=== PATIENT | female | born 1965 | race Caucasian/White ===

== ENCOUNTER 2021-01-05 04:16 | Inpatient (IN) | payer MEDICAID ==
[~2021-01-05] VITALS: Ht 154.9 cm; Wt 59.0 kg
[2021-01-05] MEDS ORDERED: DEXAMETHASONE 4MG/ML 1ML VIAL IV ONE (04:30)
[2021-01-05 05:04] LABS: CHLORIDE 102 mEq/L (98-107)
[2021-01-05 05:07] LABS: BASOPHILS % 0.3 % (0.0-2.0); HEMATOCRIT. 40.3 % (36.0-48.0); HEMOGLOBIN. 13.8 g/dL (12.0-16.0); MEAN CORPUSCULAR HEMOGLOBIN 31.1 pg (28.0-32.0); MEAN CORPUSCULAR VOLUME 91.1 fL (81.0-99.0); MEAN PLATELET VOLUME 8.1 fl (7.4-10.4); MONOCYTES % 7.5 % (2.0-8.0); NEUTROPHILS % 83.2 % (40.0-76.0); PLATELET 391 x1000/uL (130-400); RED BLOOD CELL COUNT 4.43 mill/uL (4.2-5.4); RED CELL DISTRIBUTION WIDTH 13.4 % (11.6-14.6)
[2021-01-05 05:13] LABS: CREATINE KINASE 65 IU/L (26-192); D-DIMER 1.16 mg/L FEU (<0.50); INR 1.1; PROTHROMBIN TIME 11.1 sec (9.6-11.0)
[2021-01-05] MEDS ORDERED: ASPIRIN 325MG EC TABLET PO NR (06:15)
[2021-01-05] MEDS ORDERED: ENOXAPARIN 80MG/0.8ML SYR SUBCUT NR (06:30)
[2021-01-05 06:58] LABS: PARTIAL THROMBOPLASTIN TIME 27.6 sec (23.4-31.0)
[2021-01-05 11:00] VITALS: BP 109/62
[2021-01-05] MEDS ORDERED: POTASSIUM CHLORIDE 20MEQ TABLET SR PO NR (11:45)
[2021-01-05 12:00] VITALS: BP 110/68
[2021-01-05] MEDS ORDERED: ONDANSETRON HCL 4MG/2ML INJ IV PRN (12:00)
[2021-01-05] MEDS: BLOOD SUGAR DIAGNOSTIC STRIP TEST SCH ×2 (12:40→18:04)
[2021-01-05] MEDS: AZITHROMYCIN 500 MG in DEXT 5% WATER 250 ML IV SCH ×2 (14:12→21:12)
[2021-01-05] MEDS: CEFTRIAXONE 1,000 MG in DEXTROSE 5% WATER 50 ML IV SCH (14:12)
[2021-01-05] MEDS: ASPIRIN 81MG TABLET PO SCH (14:13)
[2021-01-05] MEDS: INSULIN LISPRO 100 UNITS/ML SUBCUT SCH ×3 (14:16→22:14)
[2021-01-05 16:00] VITALS: BP 95/61
[2021-01-05 20:00] VITALS: BP 93/51
[2021-01-05] MEDS: ATORVASTATIN CALCIUM 10MG TABLET PO SCH (21:06)
[2021-01-05] MEDS: ENOXAPARIN 80MG/0.8ML SYR SUBCUT SCH (21:07)
[2021-01-06] VITALS: BP 98/58
[2021-01-06 04:00] VITALS: BP 101/62
[2021-01-06] MEDS: ACETAMINOPHEN 325MG TABLET PO PRN ×2 (06:03→23:45)
[2021-01-06 06:53] LABS: BASOPHILS % 0.3 % (0.0-2.0); HEMATOCRIT. 39.1 % (36.0-48.0); HEMOGLOBIN. 13.3 g/dL (12.0-16.0); LYMPHOCYTES % 8.5 % (20.0-50.0); MEAN CORPUSCULAR HEMOGLOBIN 31.3 pg (28.0-32.0); MEAN PLATELET VOLUME 8.3 fl (7.4-10.4); MONOCYTES % 5.5 % (2.0-8.0); NEUTROPHILS % 85.7 % (40.0-76.0); PLATELET 450 x1000/uL (130-400); RED BLOOD CELL COUNT 4.25 mill/uL (4.2-5.4); RED CELL DISTRIBUTION WIDTH 13.5 % (11.6-14.6)
[2021-01-06] MEDS: BLOOD SUGAR DIAGNOSTIC STRIP TEST SCH ×4 (07:40→21:06)
[2021-01-06 07:57] LABS: CHLORIDE 107 mEq/L (98-107)
[2021-01-06 08:00] VITALS: BP 121/60
[2021-01-06] MEDS ORDERED: CEFTRIAXONE 1 G PREMIX 50 ML IV SCH (09:00)
[2021-01-06] MEDS: INSULIN LISPRO 100 UNITS/ML SUBCUT SCH ×6 (09:10→21:28)
[2021-01-06] MEDS: DEXAMETHASONE 10 MG/ML VIAL IV SCH ×2 (09:12→10:34)
[2021-01-06] MEDS: ENOXAPARIN 80MG/0.8ML SYR SUBCUT SCH ×2 (09:12→21:34)
[2021-01-06] MEDS: ASPIRIN 81MG TABLET PO SCH ×2 (09:12→10:34)
[2021-01-06 12:00] VITALS: BP 116/56
[2021-01-06] MEDS: CEFTRIAXONE 1,000 MG in DEXTROSE 5% WATER 50 ML IV SCH (15:08)
[2021-01-06] MEDS: BENZONATATE 100MG CAPSULE PO SCH ×2 (15:08→21:31)
[2021-01-06 16:00] VITALS: BP 124/55
[2021-01-06 20:00] VITALS: BP 113/65
[2021-01-06] MEDS: ATORVASTATIN CALCIUM 10MG TABLET PO SCH (21:31)
[2021-01-06] MEDS: TRAZODONE HCL 50MG TABLET PO PRN (23:43)
[2021-01-07 00:02] VITALS: BP 110/66
[2021-01-07 04:32] VITALS: BP 111/69
[2021-01-07] MEDS: ACETAMINOPHEN 325MG TABLET PO PRN ×3 (06:17→22:04)
[2021-01-07] MEDS: BENZONATATE 100MG CAPSULE PO SCH ×3 (06:17→21:47)
[2021-01-07 06:30] LABS: HEMATOCRIT. 40.1 % (36.0-48.0); HEMOGLOBIN. 13.6 g/dL (12.0-16.0); MEAN CORPUSCULAR HEMOGLOBIN 31.3 pg (28.0-32.0); MEAN CORPUSCULAR VOLUME 92.2 fL (81.0-99.0); PLATELET 505 x1000/uL (130-400); RED BLOOD CELL COUNT 4.35 mill/uL (4.2-5.4); RED CELL DISTRIBUTION WIDTH 13.8 % (11.6-14.6)
[2021-01-07] MEDS: BLOOD SUGAR DIAGNOSTIC STRIP TEST SCH ×4 (06:37→21:45)
[2021-01-07 06:49] LABS: CHLORIDE 108 mEq/L (98-107)
[2021-01-07 08:00] VITALS: BP 99/65
[2021-01-07] MEDS: ENOXAPARIN 80MG/0.8ML SYR SUBCUT SCH ×2 (08:38→21:47)
[2021-01-07] MEDS: INSULIN LISPRO 100 UNITS/ML SUBCUT SCH ×4 (08:41→21:00)
[2021-01-07 12:00] VITALS: BP_SYST 107
[2021-01-07] MEDS: AZITHROMYCIN 500 MG in DEXT 5% WATER 250 ML IV SCH (12:41)
[2021-01-07 16:00] VITALS: BP 104/67
[2021-01-07] MEDS: CEFTRIAXONE 1,000 MG in DEXTROSE 5% WATER 50 ML IV SCH (17:48)
[2021-01-07 20:00] VITALS: BP 83/55
[2021-01-07] MEDS: ATORVASTATIN CALCIUM 10MG TABLET PO SCH (21:46)
[2021-01-07] MEDS: TRAZODONE HCL 50MG TABLET PO PRN (21:46)
[2021-01-08] VITALS: BP_SYST 89; BP_SYST 99; BP_DIAS 55
[2021-01-08 01:11] LABS: PLATELET ESTIMATE INCREASED
[2021-01-08 04:00] VITALS: BP 95/58
[2021-01-08] MEDS: BENZONATATE 100MG CAPSULE PO SCH ×3 (06:24→22:28)
[2021-01-08] MEDS: ACETAMINOPHEN 325MG TABLET PO PRN (06:42)
[2021-01-08] MEDS: INSULIN LISPRO 100 UNITS/ML SUBCUT SCH ×4 (07:45→21:00)
[2021-01-08] MEDS: BLOOD SUGAR DIAGNOSTIC STRIP TEST SCH ×4 (07:45→21:00)
[2021-01-08 08:29] LABS: CHLORIDE 102 mEq/L (98-107)
[2021-01-08 08:42] LABS: HEMATOCRIT. 40.3 % (36.0-48.0); HEMOGLOBIN. 13.3 g/dL (12.0-16.0); MEAN CORPUSCULAR HEMOGLOBIN 30.3 pg (28.0-32.0); MEAN CORPUSCULAR VOLUME 92.1 fL (81.0-99.0); MEAN PLATELET VOLUME 8.1 fl (7.4-10.4); PLATELET 497 x1000/uL (130-400); RED BLOOD CELL COUNT 4.37 mill/uL (4.2-5.4); RED CELL DISTRIBUTION WIDTH 13.6 % (11.6-14.6)
[2021-01-08] MEDS: DEXAMETHASONE 10 MG/ML VIAL IV SCH (09:44)
[2021-01-08] MEDS: ASPIRIN 81MG TABLET PO SCH (09:44)
[2021-01-08] MEDS: ENOXAPARIN 80MG/0.8ML SYR SUBCUT SCH ×2 (09:47→22:38)
[2021-01-08] MEDS: MIDODRINE HCL 5MG TABLET PO SCH ×3 (10:24→17:00)
[2021-01-08 12:00] VITALS: BP 112/67
[2021-01-08] MEDS: SODIUM CHLORIDE 0.9% 1,000 ML IV SCH (12:07)
[2021-01-08] MEDS: NYSTATIN 100,000 UNITS/ML 5ML UDC SSW SCH ×3 (12:08→17:00)
[2021-01-08] MEDS: LORAZEPAM 2MG/ML CPJ IV PRN (12:09)
[2021-01-08] MEDS ORDERED: IVERMECTIN 3 MG TABLET PO NR (14:00)
[2021-01-08 16:25] VITALS: BP 99/53
[2021-01-08 19:39] LABS: BG CARBOXYHEMOGLOBIN 0.3 % (0.5-1.5); BG DEOXYHEMOGLOBIN 3.7 % (0.0-5.0); BG FRACTION INSPIRED OXYGEN 21; BG HCO3 ACT 22.5 mmol/L (22.0-26.0); BG METHEMOGLOBIN 0.3 % (0.0-1.5); BG OXYGEN SATURATION 96.3 % (92.0-98.5); BG OXYHEMOGLOBIN 95.7 % (94.0-97.0); BG PH 7.439 (7.350-7.450); BG PO2 87.8 mmHg (75.0-100.0); BG SAMPLE SITE RIGHT RADIAL; BG TOTAL HEMOGLOBIN 13.2 g/dL (12.0-18.0); BG VENT MODE ROOM AIR
[2021-01-08 20:00] VITALS: BP 100/55
[2021-01-08] MEDS: ATORVASTATIN CALCIUM 10MG TABLET PO SCH (22:25)
[2021-01-08 23:51] LABS: PLATELET ESTIMATE INCREASED
[2021-01-09] VITALS: BP 125/62
[2021-01-09] MEDS: SODIUM CHLORIDE 0.9% 1,000 ML IV SCH (03:55)
[2021-01-09 04:00] VITALS: BP 92/64
[2021-01-09] MEDS: BENZONATATE 100MG CAPSULE PO SCH ×3 (06:41→21:42)
[2021-01-09 07:07] LABS: CHLORIDE 104 mEq/L (98-107)
[2021-01-09 07:20] LABS: HEMATOCRIT. 35.7 % (36.0-48.0); HEMOGLOBIN. 11.9 g/dL (12.0-16.0); MEAN CORPUSCULAR HEMOGLOBIN 30.6 pg (28.0-32.0); MEAN CORPUSCULAR VOLUME 92.1 fL (81.0-99.0); MEAN PLATELET VOLUME 8.1 fl (7.4-10.4); PLATELET 449 x1000/uL (130-400); RED BLOOD CELL COUNT 3.88 mill/uL (4.2-5.4); RED CELL DISTRIBUTION WIDTH 13.6 % (11.6-14.6)
[2021-01-09] MEDS: BLOOD SUGAR DIAGNOSTIC STRIP TEST SCH ×4 (07:40→21:11)
[2021-01-09 08:00] VITALS: BP 93/60
[2021-01-09] MEDS: INSULIN LISPRO 100 UNITS/ML SUBCUT SCH ×4 (08:10→21:53)
[2021-01-09] MEDS: ENOXAPARIN 80MG/0.8ML SYR SUBCUT SCH ×2 (08:39→22:03)
[2021-01-09] MEDS: ASPIRIN 81MG TABLET PO SCH (08:41)
[2021-01-09] MEDS: LORAZEPAM 2MG/ML CPJ IV PRN ×2 (08:41→22:55)
[2021-01-09] MEDS: NYSTATIN 100,000 UNITS/ML 5ML UDC SSW SCH ×3 (08:41→17:00)
[2021-01-09] MEDS: DEXAMETHASONE 10 MG/ML VIAL IV SCH (08:42)
[2021-01-09] MEDS: MIDODRINE HCL 5MG TABLET PO SCH ×3 (09:05→17:00)
[2021-01-09] MEDS: GUAIFENESIN-DM 200MG-20MG/10ML UDC PO PRN (09:25)
[2021-01-09 12:00] VITALS: BP 98/58
[2021-01-09] MEDS ORDERED: LORAZEPAM 2MG/ML CPJ IV NR (12:30)
[2021-01-09] MEDS: DEXT 5%/0.45% NACL 1000ML 1,000 ML IV SCH ×2 (13:00→21:41)
[2021-01-09 13:20] LABS: PLATELET ESTIMATE SLIGHTLY INCREASED
[2021-01-09 16:00] VITALS: BP 101/68
[2021-01-09 20:00] VITALS: BP 100/66
[2021-01-09] MEDS: ATORVASTATIN CALCIUM 10MG TABLET PO SCH (21:41)
[2021-01-10] VITALS: BP 103/70
[2021-01-10 04:00] VITALS: BP 101/70
[2021-01-10] MEDS: BENZONATATE 100MG CAPSULE PO SCH ×3 (06:17→21:46)
[2021-01-10 06:39] LABS: HEMATOCRIT. 36.2 % (36.0-48.0); MEAN CORPUSCULAR HEMOGLOBIN 30.7 pg (28.0-32.0); MEAN PLATELET VOLUME 8.4 fl (7.4-10.4); PLATELET 476 x1000/uL (130-400); RED CELL DISTRIBUTION WIDTH 13.6 % (11.6-14.6)
[2021-01-10 07:31] LABS: CHLORIDE 104 mEq/L (98-107)
[2021-01-10 08:00] VITALS: BP 102/69
[2021-01-10] MEDS: INSULIN LISPRO 100 UNITS/ML SUBCUT SCH ×4 (08:10→22:37)
[2021-01-10] MEDS: BLOOD SUGAR DIAGNOSTIC STRIP TEST SCH ×4 (08:27→21:00)
[2021-01-10] MEDS: ENOXAPARIN 80MG/0.8ML SYR SUBCUT SCH ×2 (08:50→21:46)
[2021-01-10] MEDS: NYSTATIN 100,000 UNITS/ML 5ML UDC SSW SCH ×3 (08:50→16:38)
[2021-01-10] MEDS: DEXAMETHASONE 10 MG/ML VIAL IV SCH (08:51)
[2021-01-10] MEDS: MIDODRINE HCL 5MG TABLET PO SCH ×3 (08:51→16:38)
[2021-01-10] MEDS: ASPIRIN 81MG TABLET PO SCH ×2 (08:56→09:05)
[2021-01-10] MEDS: DEXT 5%/0.45% NACL 1000ML 1,000 ML IV SCH (08:56)
[2021-01-10] MEDS ORDERED: IVERMECTIN 3 MG TABLET PO NR (09:00)
[2021-01-10] MEDS: LORAZEPAM 2MG/ML CPJ IV PRN (09:04)
[2021-01-10 12:00] VITALS: BP 92/65
[2021-01-10 13:57] LABS: PLATELET ESTIMATE SLIGHTLY INCREASED
[2021-01-10 16:00] VITALS: BP 103/71
[2021-01-10 20:00] VITALS: BP 101/71
[2021-01-10] MEDS: ATORVASTATIN CALCIUM 10MG TABLET PO SCH (21:45)
[2021-01-11] VITALS: BP 103/81
[2021-01-11 04:00] VITALS: BP 136/71
[2021-01-11] MEDS: BENZONATATE 100MG CAPSULE PO SCH ×3 (06:29→22:28)
[2021-01-11 07:33] LABS: HEMATOCRIT. 38.2 % (36.0-48.0); HEMOGLOBIN. 12.6 g/dL (12.0-16.0); MEAN CORPUSCULAR HEMOGLOBIN 30.6 pg (28.0-32.0); MEAN CORPUSCULAR VOLUME 92.8 fL (81.0-99.0); MEAN PLATELET VOLUME 8.8 fl (7.4-10.4); PLATELET 456 x1000/uL (130-400); RED BLOOD CELL COUNT 4.11 mill/uL (4.2-5.4); RED CELL DISTRIBUTION WIDTH 13.4 % (11.6-14.6)
[2021-01-11] MEDS: BLOOD SUGAR DIAGNOSTIC STRIP TEST SCH ×4 (07:40→21:20)
[2021-01-11] MEDS: INSULIN LISPRO 100 UNITS/ML SUBCUT SCH ×4 (08:10→22:31)
[2021-01-11 08:16] LABS: CHLORIDE 104 mEq/L (98-107)
[2021-01-11] MEDS: ENOXAPARIN 80MG/0.8ML SYR SUBCUT SCH ×2 (09:24→22:45)
[2021-01-11] MEDS: DEXAMETHASONE 10 MG/ML VIAL IV SCH (09:25)
[2021-01-11] MEDS: MIDODRINE HCL 5MG TABLET PO SCH ×3 (09:25→17:18)
[2021-01-11] MEDS: NYSTATIN 100,000 UNITS/ML 5ML UDC SSW SCH ×3 (09:25→17:18)
[2021-01-11] MEDS: ASPIRIN 81MG TABLET PO SCH (09:25)
[2021-01-11] MEDS: LORAZEPAM 2MG/ML CPJ IV PRN (09:45)
[2021-01-11 12:00] VITALS: BP 91/58
[2021-01-11] MEDS ORDERED: FUROSEMIDE 40MG/4ML VIAL IVP NR (12:00)
[2021-01-11] MEDS: ACETAMINOPHEN 325MG TABLET PO PRN (14:02)
[2021-01-11 15:15] LABS: PLATELET ESTIMATE NORMAL
[2021-01-11 15:24] LABS: BG BASE EXCESS -1.6 mmol/L (-2.0-2.0); BG CARBOXYHEMOGLOBIN 0.8 % (0.5-1.5); BG FRACTION INSPIRED OXYGEN 100; BG HCO3 ACT 21.7 mmol/L (22.0-26.0); BG METHEMOGLOBIN 0.2 % (0.0-1.5); BG OXYGEN SATURATION 89.9 % (92.0-98.5); BG PCO2 32.4 mmHg (35.0-45.0); BG PH 7.443 (7.350-7.450); BG PO2 56.8 mmHg (75.0-100.0); BG SAMPLE SITE LEFT BRACHIAL; BG TOTAL HEMOGLOBIN 13.7 g/dL (12.0-18.0); BG TOTAL RESPIRATORY RATE 35 b/min; BG VENT MODE MASK - BIPAP
[2021-01-11 20:00] VITALS: BP 114/71
[2021-01-11] MEDS: ATORVASTATIN CALCIUM 10MG TABLET PO SCH (22:28)
[2021-01-12] VITALS: BP 119/68
[2021-01-12 04:00] VITALS: BP 111/72
[2021-01-12] MEDS: BENZONATATE 100MG CAPSULE PO SCH ×3 (06:29→21:18)
[2021-01-12 08:00] VITALS: BP 102/64
[2021-01-12] MEDS: INSULIN LISPRO 100 UNITS/ML SUBCUT SCH ×4 (08:10→21:57)
[2021-01-12] MEDS: BLOOD SUGAR DIAGNOSTIC STRIP TEST SCH ×4 (08:16→21:40)
[2021-01-12] MEDS: ENOXAPARIN 80MG/0.8ML SYR SUBCUT SCH ×2 (08:52→21:18)
[2021-01-12] MEDS: ASPIRIN 81MG TABLET PO SCH (08:52)
[2021-01-12] MEDS: NYSTATIN 100,000 UNITS/ML 5ML UDC SSW SCH ×3 (08:52→17:01)
[2021-01-12] MEDS: DEXAMETHASONE 10 MG/ML VIAL IV SCH (08:52)
[2021-01-12] MEDS: MIDODRINE HCL 5MG TABLET PO SCH ×3 (08:52→17:01)
[2021-01-12] MEDS: ACETAMINOPHEN 325MG TABLET PO PRN (08:52)
[2021-01-12] MEDS: LORAZEPAM 2MG/ML CPJ IV PRN (08:54)
[2021-01-12 20:39] VITALS: BP 108/69
[2021-01-12] MEDS: ATORVASTATIN CALCIUM 10MG TABLET PO SCH (21:17)
[2021-01-13 00:19] VITALS: BP 100/72
[2021-01-13 04:00] VITALS: BP 112/74
[2021-01-13] MEDS: BENZONATATE 100MG CAPSULE PO SCH ×3 (06:04→21:25)
[2021-01-13 06:46] LABS: HEMATOCRIT. 43.5 % (36.0-48.0); HEMOGLOBIN. 14.2 g/dL (12.0-16.0); MEAN CORPUSCULAR HEMOGLOBIN 30.6 pg (28.0-32.0); MEAN CORPUSCULAR VOLUME 93.7 fL (81.0-99.0); MEAN PLATELET VOLUME 8.8 fl (7.4-10.4); PLATELET 546 x1000/uL (130-400); RED BLOOD CELL COUNT 4.64 mill/uL (4.2-5.4); RED CELL DISTRIBUTION WIDTH 13.7 % (11.6-14.6)
[2021-01-13] MEDS: BLOOD SUGAR DIAGNOSTIC STRIP TEST SCH ×4 (07:40→21:42)
[2021-01-13] MEDS: INSULIN LISPRO 100 UNITS/ML SUBCUT SCH ×4 (08:10→21:56)
[2021-01-13 08:25] LABS: CHLORIDE 109 mEq/L (98-107)
[2021-01-13] MEDS: ACETAMINOPHEN 325MG TABLET PO PRN (09:11)
[2021-01-13] MEDS: GUAIFENESIN-DM 200MG-20MG/10ML UDC PO PRN (09:11)
[2021-01-13] MEDS: ASPIRIN 81MG TABLET PO SCH (09:11)
[2021-01-13] MEDS: NYSTATIN 100,000 UNITS/ML 5ML UDC SSW SCH (09:11)
[2021-01-13] MEDS: DEXAMETHASONE 10 MG/ML VIAL IV SCH (09:12)
[2021-01-13] MEDS: MIDODRINE HCL 5MG TABLET PO SCH ×3 (09:14→16:13)
[2021-01-13] MEDS: ENOXAPARIN 80MG/0.8ML SYR SUBCUT SCH ×2 (09:14→21:25)
[2021-01-13 12:00] VITALS: BP 107/61
[2021-01-13 16:00] VITALS: BP 90/54
[2021-01-13 20:17] LABS: PLATELET ESTIMATE INCREASED
[2021-01-13 20:40] VITALS: BP 98/63
[2021-01-13] MEDS: ATORVASTATIN CALCIUM 10MG TABLET PO SCH (21:24)
[2021-01-13] MEDS: LORAZEPAM 2MG/ML CPJ IV PRN (23:08)
[2021-01-14] VITALS: BP 100/49
[2021-01-14 04:00] VITALS: BP 90/61
[2021-01-14] MEDS: BENZONATATE 100MG CAPSULE PO SCH ×3 (06:47→22:20)
[2021-01-14] MEDS: INSULIN LISPRO 100 UNITS/ML SUBCUT SCH ×4 (07:14→22:19)
[2021-01-14 07:25] LABS: BASOPHILS % 0.5 % (0.0-2.0); EOSINOPHILS % 0.3 % (0.0-5.0); HEMATOCRIT. 42.2 % (36.0-48.0); HEMOGLOBIN. 13.7 g/dL (12.0-16.0); LYMPHOCYTES % 7.7 % (20.0-50.0); MEAN CORPUSCULAR HEMOGLOBIN 30.7 pg (28.0-32.0); MEAN CORPUSCULAR VOLUME 94.8 fL (81.0-99.0); MEAN PLATELET VOLUME 9.3 fl (7.4-10.4); NEUTROPHILS % 87.5 % (40.0-76.0); PLATELET 522 x1000/uL (130-400); RED BLOOD CELL COUNT 4.46 mill/uL (4.2-5.4); RED CELL DISTRIBUTION WIDTH 13.8 % (11.6-14.6)
[2021-01-14 07:53] LABS: CHLORIDE 106 mEq/L (98-107)
[2021-01-14 08:00] VITALS: BP 114/73
[2021-01-14] MEDS: ASPIRIN 81MG TABLET PO SCH (08:28)
[2021-01-14] MEDS: DEXAMETHASONE 10 MG/ML VIAL IV SCH (08:28)
[2021-01-14] MEDS: ENOXAPARIN 80MG/0.8ML SYR SUBCUT SCH ×2 (08:29→22:20)
[2021-01-14] MEDS: MIDODRINE HCL 5MG TABLET PO SCH ×3 (08:30→17:53)
[2021-01-14] MEDS: BLOOD SUGAR DIAGNOSTIC STRIP TEST SCH ×3 (11:41→21:00)
[2021-01-14 12:00] VITALS: BP 103/72
[2021-01-14 20:00] VITALS: BP 104/64
[2021-01-14] MEDS: ATORVASTATIN CALCIUM 10MG TABLET PO SCH (22:20)
[2021-01-15] VITALS (7 sets, daily range): BP systolic 84–98; BP diastolic 45–64
[2021-01-15] MEDS: BENZONATATE 100MG CAPSULE PO SCH ×3 (05:23→20:50)
[2021-01-15] MEDS: INSULIN LISPRO 100 UNITS/ML SUBCUT SCH ×4 (07:12→20:50)
[2021-01-15 07:30] LABS: BASOPHILS % 0.4 % (0.0-2.0); EOSINOPHILS % 0.4 % (0.0-5.0); HEMATOCRIT. 36.1 % (36.0-48.0); HEMOGLOBIN. 11.9 g/dL (12.0-16.0); LYMPHOCYTES % 7.3 % (20.0-50.0); MEAN CORPUSCULAR HEMOGLOBIN 30.6 pg (28.0-32.0); MEAN PLATELET VOLUME 8.9 fl (7.4-10.4); MONOCYTES % 4.8 % (2.0-8.0); NEUTROPHILS % 87.1 % (40.0-76.0); PLATELET 432 x1000/uL (130-400); RED BLOOD CELL COUNT 3.88 mill/uL (4.2-5.4); RED CELL DISTRIBUTION WIDTH 13.6 % (11.6-14.6)
[2021-01-15] MEDS: BLOOD SUGAR DIAGNOSTIC STRIP TEST SCH ×4 (07:59→20:51)
[2021-01-15 08:05] LABS: CHLORIDE 102 mEq/L (98-107)
[2021-01-15] MEDS: MIDODRINE HCL 5MG TABLET PO SCH ×3 (08:28→17:24)
[2021-01-15] MEDS: ASPIRIN 81MG TABLET PO SCH (08:28)
[2021-01-15] MEDS: DEXAMETHASONE 10 MG/ML VIAL IV SCH (08:29)
[2021-01-15] MEDS: ENOXAPARIN 80MG/0.8ML SYR SUBCUT SCH ×2 (08:30→20:50)
[2021-01-15] MEDS ORDERED: SODIUM CHLORIDE 0.9% 500 ML IV NR ×2 (10:45→11:00)
[2021-01-15] MEDS: CITALOPRAM HYDROBROMIDE 10MG TABLET PO SCH (10:57)
[2021-01-15] MEDS: LORAZEPAM 0.5MG TABLET PO PRN ×3 (11:17→21:18)
[2021-01-15] MEDS ORDERED: ASPIRIN 325MG EC TABLET PO NR (20:30)
[2021-01-15] MEDS: SODIUM CHLORIDE 0.9% 1,000 ML IV SCH (20:50)
[2021-01-15] MEDS: ATORVASTATIN CALCIUM 10MG TABLET PO SCH (20:50)
[2021-01-15] MEDS: TRAZODONE HCL 50MG TABLET PO PRN (22:57)
[2021-01-16] VITALS (7 sets, daily range): BP systolic 88–105; BP diastolic 48–82
[2021-01-16] MEDS: ACETAMINOPHEN 325MG TABLET PO PRN ×2 (02:00→12:54)
[2021-01-16] MEDS: BENZONATATE 100MG CAPSULE PO SCH ×3 (06:22→21:00)
[2021-01-16] MEDS: INSULIN LISPRO 100 UNITS/ML SUBCUT SCH ×4 (07:18→21:00)
[2021-01-16] MEDS: BLOOD SUGAR DIAGNOSTIC STRIP TEST SCH ×4 (07:18→21:00)
[2021-01-16 07:34] LABS: BASOPHILS % 0.5 % (0.0-2.0); EOSINOPHILS % 0.4 % (0.0-5.0); HEMATOCRIT. 34.2 % (36.0-48.0); HEMOGLOBIN. 11.5 g/dL (12.0-16.0); LYMPHOCYTES % 8.5 % (20.0-50.0); MEAN CORPUSCULAR HEMOGLOBIN 31.3 pg (28.0-32.0); MONOCYTES % 4.7 % (2.0-8.0); NEUTROPHILS % 85.9 % (40.0-76.0); PLATELET 400 x1000/uL (130-400); RED BLOOD CELL COUNT 3.67 mill/uL (4.2-5.4); RED CELL DISTRIBUTION WIDTH 13.4 % (11.6-14.6)
[2021-01-16 07:43] LABS: CHLORIDE 104 mEq/L (98-107)
[2021-01-16] MEDS: DEXAMETHASONE 10 MG/ML VIAL IV SCH (08:34)
[2021-01-16] MEDS: CITALOPRAM HYDROBROMIDE 10MG TABLET PO SCH (08:34)
[2021-01-16] MEDS: ASPIRIN 81MG TABLET PO SCH (08:34)
[2021-01-16] MEDS: ENOXAPARIN 80MG/0.8ML SYR SUBCUT SCH ×2 (08:34→20:59)
[2021-01-16] MEDS: MIDODRINE HCL 5MG TABLET PO SCH ×3 (08:34→16:43)
[2021-01-16] MEDS: SODIUM CHLORIDE 0.9% 1,000 ML IV SCH (09:57)
[2021-01-16] MEDS: ATORVASTATIN CALCIUM 10MG TABLET PO SCH (20:59)
[2021-01-16] MEDS: TRAZODONE HCL 50MG TABLET PO PRN (23:41)
[2021-01-17] VITALS (73 sets, daily range): BP systolic 69–167; BP diastolic 31–104
[2021-01-17] MEDS: SODIUM CHLORIDE 0.9% 1,000 ML IV SCH
[2021-01-17] MEDS: ACETAMINOPHEN 325MG TABLET PO PRN ×2 (00:47→21:14)
[2021-01-17] MEDS: LORAZEPAM 0.5MG TABLET PO PRN (00:52)
[2021-01-17 01:08] LABS: LDL CHOLESTEROL 86 mg/dL (5-100)
[2021-01-17 01:09] LABS: HDL CHOLESTEROL 46 mg/dL (40-59)
[2021-01-17 02:39] LABS: BG BASE EXCESS -0.7 mmol/L (-2.0-2.0); BG CARBOXYHEMOGLOBIN 0.3 % (0.5-1.5); BG DEOXYHEMOGLOBIN 9.2 % (0.0-5.0); BG FRACTION INSPIRED OXYGEN 100; BG HCO3 ACT 25.3 mmol/L (22.0-26.0); BG METHEMOGLOBIN 0.2 % (0.0-1.5); BG OXYGEN SATURATION 90.8 % (92.0-98.5); BG OXYHEMOGLOBIN 90.3 % (94.0-97.0); BG PCO2 46.9 mmHg (35.0-45.0); BG PH 7.349 (7.350-7.450); BG PO2 61.1 mmHg (75.0-100.0); BG SAMPLE SITE LEFT RADIAL; BG TOTAL HEMOGLOBIN 13.3 g/dL (12.0-18.0); BG VENT MODE MASK - BIPAP
[2021-01-17] MEDS ORDERED: LIDOCAINE HCL/EPINEPHRINE 1%-EPI 1:100,000 50 ML VIAL INFIL NR (02:45)
[2021-01-17] MEDS ORDERED: MORPHINE SULFATE 2 MG/ML CPJ (NOT FOR IM USE) IV PRN ×2 (03:00→07:00)
[2021-01-17] MEDS: BLOOD SUGAR DIAGNOSTIC STRIP TEST SCH ×4 (05:47→21:16)
[2021-01-17] MEDS: BENZONATATE 100MG CAPSULE PO SCH ×3 (05:47→21:24)
[2021-01-17] MEDS: INSULIN LISPRO 100 UNITS/ML SUBCUT SCH ×4 (05:48→21:15)
[2021-01-17 05:55] LABS: CHLORIDE 103 mEq/L (98-107)
[2021-01-17 05:59] LABS: HEMATOCRIT. 38.3 % (36.0-48.0); HEMOGLOBIN. 12.3 g/dL (12.0-16.0); MEAN CORPUSCULAR HEMOGLOBIN 29.9 pg (28.0-32.0); MEAN CORPUSCULAR VOLUME 93.4 fL (81.0-99.0); MEAN PLATELET VOLUME 8.7 fl (7.4-10.4); PLATELET 479 x1000/uL (130-400); RED CELL DISTRIBUTION WIDTH 13.9 % (11.6-14.6)
[2021-01-17] MEDS: ASPIRIN 81MG TABLET PO SCH (09:00)
[2021-01-17] MEDS: CITALOPRAM HYDROBROMIDE 10MG TABLET PO SCH (09:00)
[2021-01-17] MEDS: MIDODRINE HCL 5MG TABLET PO SCH ×3 (09:00→17:00)
[2021-01-17] MEDS ORDERED: MIDAZOLAM HCL 100 MG in SODIUM CHLORIDE 0.9% 80 ML IV PRN (09:00)
[2021-01-17] MEDS ORDERED: IPRATROPIUM/ALBUTEROL 0.5-3(2.5)MG/3ML NEB HHN PRN (09:15)
[2021-01-17] MEDS: MIDAZOLAM 100MG/100ML PREMIX IV PRN ×3 (09:17→21:14)
[2021-01-17 09:57] LABS: PLATELET ESTIMATE INCREASED
[2021-01-17] MEDS: PHENYLEPHRINE 100 MG in DEXT 5% WATER 240 ML IV PRN ×2 (10:25→17:34)
[2021-01-17] MEDS: FENTANYL CITRATE/PF 2,500 MCG in SODIUM CHLORIDE 0.9% 200 ML IV PRN ×2 (10:26→17:35)
[2021-01-17 10:53] LABS: BG BASE EXCESS 2.6 mmol/L (-2.0-2.0); BG CARBOXYHEMOGLOBIN 0.4 % (0.5-1.5); BG DEOXYHEMOGLOBIN 12.6 % (0.0-5.0); BG FRACTION INSPIRED OXYGEN 100; BG HCO3 ACT 31.9 mmol/L (22.0-26.0); BG METHEMOGLOBIN 0.3 % (0.0-1.5); BG OXYGEN SATURATION 87.3 % (92.0-98.5); BG OXYHEMOGLOBIN 86.7 % (94.0-97.0); BG PCO2 73.7 mmHg (35.0-45.0); BG PH 7.254 (7.350-7.450); BG SAMPLE SITE RIGHT RADIAL; BG TOTAL HEMOGLOBIN 13.1 g/dL (12.0-18.0); BG VENT MODE VENT - AC
[2021-01-17] MEDS: METHYLPREDNISOLONE SOD SUCC 40 MG/ML VIAL IV SCH ×3 (11:51→21:14)
[2021-01-17] MEDS: ENOXAPARIN 80MG/0.8ML SYR SUBCUT SCH ×2 (11:51→21:13)
[2021-01-17] MEDS: IPRATROPIUM/ALBUTEROL 0.5-3(2.5)MG/3ML NEB HHN SCH ×3 (13:25→23:40)
[2021-01-17] MEDS: PROPOFOL 10MG/ML 100ML 100 ML IV PRN ×3 (13:41→21:16)
[2021-01-17] MEDS: ATORVASTATIN CALCIUM 10MG TABLET PO SCH (21:15)
[2021-01-18] VITALS (81 sets, daily range): BP systolic 71–188; BP diastolic 47–124
[2021-01-18] MEDS: FENTANYL CITRATE/PF 2,500 MCG in SODIUM CHLORIDE 0.9% 200 ML IV PRN ×2 (01:01→17:32)
[2021-01-18] MEDS: MIDAZOLAM 100MG/100ML PREMIX IV PRN (04:51)
[2021-01-18] MEDS: BENZONATATE 100MG CAPSULE PO SCH ×3 (05:11→21:23)
[2021-01-18] MEDS: IPRATROPIUM/ALBUTEROL 0.5-3(2.5)MG/3ML NEB HHN SCH ×5 (05:37→21:25)
[2021-01-18] MEDS ORDERED: DOPAMINE 800MG/500ML PREMIX 500 ML IV ONE (05:45)
[2021-01-18 05:49] LABS: HEMATOCRIT. 37.2 % (36.0-48.0); MEAN CORPUSCULAR HEMOGLOBIN 30.2 pg (28.0-32.0); MEAN CORPUSCULAR VOLUME 93.6 fL (81.0-99.0); MEAN PLATELET VOLUME 8.8 fl (7.4-10.4); PLATELET 440 x1000/uL (130-400); RED BLOOD CELL COUNT 3.98 mill/uL (4.2-5.4); RED CELL DISTRIBUTION WIDTH 14.1 % (11.6-14.6)
[2021-01-18 05:58] LABS: CHLORIDE 107 mEq/L (98-107)
[2021-01-18] MEDS: METHYLPREDNISOLONE SOD SUCC 40 MG/ML VIAL IV SCH ×3 (06:20→21:22)
[2021-01-18] MEDS: INSULIN LISPRO 100 UNITS/ML SUBCUT SCH ×4 (06:21→21:24)
[2021-01-18] MEDS: DOPAMINE 800 MG PREMIX 250 ML IV PRN (06:23)
[2021-01-18] MEDS: BLOOD SUGAR DIAGNOSTIC STRIP TEST SCH ×4 (06:37→21:23)
[2021-01-18] MEDS: ASPIRIN 81MG TABLET PO SCH (09:13)
[2021-01-18] MEDS: CITALOPRAM HYDROBROMIDE 10MG TABLET PO SCH (09:13)
[2021-01-18] MEDS: MIDODRINE HCL 5MG TABLET PO SCH ×3 (09:14→17:51)
[2021-01-18] MEDS: ENOXAPARIN 80MG/0.8ML SYR SUBCUT SCH (09:15)
[2021-01-18 09:32] LABS: BG BASE EXCESS 5.6 mmol/L (-2.0-2.0); BG CARBOXYHEMOGLOBIN 0.6 % (0.5-1.5); BG DEOXYHEMOGLOBIN 4.7 % (0.0-5.0); BG METHEMOGLOBIN 0.2 % (0.0-1.5); BG OXYGEN SATURATION 95.3 % (92.0-98.5); BG OXYHEMOGLOBIN 94.5 % (94.0-97.0); BG PCO2 43.1 mmHg (35.0-45.0); BG PH 7.461 (7.350-7.450); BG PO2 72.3 mmHg (75.0-100.0); BG SAMPLE SITE LEFT RADIAL; BG TOTAL HEMOGLOBIN 14.5 g/dL (12.0-18.0); BG VENT MODE VENT - P/C
[2021-01-18] MEDS ORDERED: NOREPINEPHRINE 32 MG in DEXT 5% WATER 218 ML IV PRN (09:45)
[2021-01-18] MEDS: PHENYLEPHRINE 100 MG in DEXT 5% WATER 240 ML IV PRN (10:34)
[2021-01-18 17:25] LABS: PLATELET ESTIMATE INCREASED
[2021-01-18] MEDS ORDERED: IOHEXOL-300 100 ML BOTTLE ONE (18:01)
[2021-01-18] MEDS: ACETAMINOPHEN 325MG TABLET PO PRN (18:24)
[2021-01-18] MEDS: ENOXAPARIN 60MG/0.6ML SYR SUBCUT SCH (21:23)
[2021-01-18] MEDS: ATORVASTATIN CALCIUM 10MG TABLET PO SCH (21:23)
[2021-01-19] VITALS (95 sets, daily range): BP systolic 80–165; BP diastolic 50–114
[2021-01-19] MEDS: IPRATROPIUM/ALBUTEROL 0.5-3(2.5)MG/3ML NEB HHN SCH ×6 (01:00→20:20)
[2021-01-19] MEDS: FENTANYL CITRATE/PF 2,500 MCG in SODIUM CHLORIDE 0.9% 200 ML IV PRN ×2 (03:50→17:07)
[2021-01-19] MEDS: DOPAMINE 800 MG PREMIX 250 ML IV PRN (03:51)
[2021-01-19] MEDS: METHYLPREDNISOLONE SOD SUCC 40 MG/ML VIAL IV SCH ×3 (05:18→21:24)
[2021-01-19] MEDS: BENZONATATE 100MG CAPSULE PO SCH ×3 (05:18→21:24)
[2021-01-19] MEDS: BLOOD SUGAR DIAGNOSTIC STRIP TEST SCH ×4 (05:18→23:42)
[2021-01-19] MEDS: INSULIN LISPRO 100 UNITS/ML SUBCUT SCH ×4 (05:19→23:42)
[2021-01-19 05:46] LABS: HEMATOCRIT. 40.6 % (36.0-48.0); MEAN CORPUSCULAR HEMOGLOBIN 29.9 pg (28.0-32.0); MEAN CORPUSCULAR VOLUME 93.7 fL (81.0-99.0); MEAN PLATELET VOLUME 8.9 fl (7.4-10.4); PLATELET 466 x1000/uL (130-400); RED BLOOD CELL COUNT 4.34 mill/uL (4.2-5.4)
[2021-01-19 05:48] LABS: CHLORIDE 103 mEq/L (98-107)
[2021-01-19] MEDS: CITALOPRAM HYDROBROMIDE 10MG TABLET PO SCH (08:29)
[2021-01-19] MEDS: ASPIRIN 81MG TABLET PO SCH (08:29)
[2021-01-19] MEDS: MIDODRINE HCL 5MG TABLET PO SCH ×3 (08:29→16:18)
[2021-01-19] MEDS: ENOXAPARIN 60MG/0.6ML SYR SUBCUT SCH ×2 (08:30→21:25)
[2021-01-19 09:15] LABS: PLATELET ESTIMATE INCREASED
[2021-01-19 10:19] LABS: BG BASE EXCESS 4.2 mmol/L (-2.0-2.0); BG CARBOXYHEMOGLOBIN 0.5 % (0.5-1.5); BG DEOXYHEMOGLOBIN 6.5 % (0.0-5.0); BG FRACTION INSPIRED OXYGEN 100; BG HCO3 ACT 29.5 mmol/L (22.0-26.0); BG OXYGEN SATURATION 93.5 % (92.0-98.5); BG PCO2 46.8 mmHg (35.0-45.0); BG PH 7.418 (7.350-7.450); BG PO2 68.9 mmHg (75.0-100.0); BG SAMPLE SITE RIGHT RADIAL; BG TOTAL HEMOGLOBIN 13.5 g/dL (12.0-18.0); BG VENT MODE VENT - P/C
[2021-01-19] MEDS: PHENYLEPHRINE 100 MG in DEXT 5% WATER 240 ML IV PRN (19:46)
[2021-01-19] MEDS: ATORVASTATIN CALCIUM 10MG TABLET PO SCH (21:24)
[2021-01-20] VITALS (97 sets, daily range): BP systolic 105–145; BP diastolic 71–100
[2021-01-20] MEDS: FENTANYL CITRATE/PF 2,500 MCG in SODIUM CHLORIDE 0.9% 200 ML IV PRN ×3 (01:59→17:30)
[2021-01-20] MEDS: IPRATROPIUM/ALBUTEROL 0.5-3(2.5)MG/3ML NEB HHN SCH ×5 (02:28→20:10)
[2021-01-20] MEDS: METHYLPREDNISOLONE SOD SUCC 40 MG/ML VIAL IV SCH ×3 (05:21→21:07)
[2021-01-20] MEDS: INSULIN LISPRO 100 UNITS/ML SUBCUT SCH ×3 (05:21→17:31)
[2021-01-20] MEDS: BENZONATATE 100MG CAPSULE PO SCH (05:21)
[2021-01-20] MEDS: BLOOD SUGAR DIAGNOSTIC STRIP TEST SCH ×3 (05:21→17:23)
[2021-01-20] MEDS: ENOXAPARIN 60MG/0.6ML SYR SUBCUT SCH ×2 (08:44→20:57)
[2021-01-20] MEDS: ACETAMINOPHEN 325MG TABLET PO PRN ×2 (08:45→20:57)
[2021-01-20] MEDS: MIDODRINE HCL 5MG TABLET PO SCH ×2 (08:45→12:15)
[2021-01-20] MEDS: ASPIRIN 81MG TABLET PO SCH (08:45)
[2021-01-20] MEDS: CITALOPRAM HYDROBROMIDE 10MG TABLET PO SCH (08:45)
[2021-01-20 12:31] LABS: HEMATOCRIT. 37.6 % (36.0-48.0); HEMOGLOBIN. 11.8 g/dL (12.0-16.0); MEAN CORPUSCULAR HEMOGLOBIN 30.3 pg (28.0-32.0); MEAN CORPUSCULAR VOLUME 96.2 fL (81.0-99.0); MEAN PLATELET VOLUME 8.6 fl (7.4-10.4); PLATELET 386 x1000/uL (130-400); RED BLOOD CELL COUNT 3.91 mill/uL (4.2-5.4); RED CELL DISTRIBUTION WIDTH 15.1 % (11.6-14.6)
[2021-01-20 12:37] LABS: CHLORIDE 106 mEq/L (98-107)
[2021-01-20] MEDS ORDERED: GUAIFENESIN-DM 200MG-20MG/10ML UDC GT PRN (12:39)
[2021-01-20] MEDS ORDERED: LORAZEPAM 0.5MG TABLET GT PRN (12:41)
[2021-01-20] MEDS ORDERED: TRAZODONE HCL 50MG TABLET GT PRN (12:42)
[2021-01-20] MEDS: MIDODRINE HCL 5MG TABLET GT SCH ×2 (13:00→17:29)
[2021-01-20 13:22] LABS: PLATELET ESTIMATE NORMAL
[2021-01-20] MEDS: ATORVASTATIN CALCIUM 10MG TABLET NG SCH (20:56)
[2021-01-20] MEDS: MIDAZOLAM 100MG/100ML PREMIX IV PRN (20:56)
[2021-01-21] VITALS (99 sets, daily range): BP systolic 92–153; BP diastolic 55–99
[2021-01-21] MEDS: BLOOD SUGAR DIAGNOSTIC STRIP TEST SCH ×5 (00:03→23:37)
[2021-01-21] MEDS: INSULIN LISPRO 100 UNITS/ML SUBCUT SCH ×6 (00:30→23:53)
[2021-01-21] MEDS: FENTANYL CITRATE/PF 2,500 MCG in SODIUM CHLORIDE 0.9% 200 ML IV PRN ×3 (01:51→18:53)
[2021-01-21] MEDS: IPRATROPIUM/ALBUTEROL 0.5-3(2.5)MG/3ML NEB HHN SCH ×6 (04:00→20:33)
[2021-01-21 05:34] LABS: HEMATOCRIT. 34.9 % (36.0-48.0); HEMOGLOBIN. 11.1 g/dL (12.0-16.0); MEAN CORPUSCULAR HEMOGLOBIN 30.6 pg (28.0-32.0); MEAN CORPUSCULAR VOLUME 96.3 fL (81.0-99.0); MEAN PLATELET VOLUME 8.9 fl (7.4-10.4); PLATELET 363 x1000/uL (130-400); RED BLOOD CELL COUNT 3.62 mill/uL (4.2-5.4)
[2021-01-21 05:45] LABS: CHLORIDE 104 mEq/L (98-107)
[2021-01-21] MEDS: METHYLPREDNISOLONE SOD SUCC 40 MG/ML VIAL IV SCH ×3 (06:34→22:06)
[2021-01-21] MEDS: MIDAZOLAM 100MG/100ML PREMIX IV PRN (08:22)
[2021-01-21] MEDS: ENOXAPARIN 60MG/0.6ML SYR SUBCUT SCH ×2 (08:23→22:08)
[2021-01-21] MEDS: CITALOPRAM HYDROBROMIDE 10MG TABLET GT SCH (08:23)
[2021-01-21] MEDS: ASPIRIN 81MG TABLET NG SCH (08:24)
[2021-01-21] MEDS: MIDODRINE HCL 5MG TABLET GT SCH ×3 (08:24→18:23)
[2021-01-21 09:40] LABS: PLATELET ESTIMATE NORMAL
[2021-01-21] MEDS: PHENYLEPHRINE 100 MG in DEXT 5% WATER 240 ML IV PRN (11:59)
[2021-01-21] MEDS: ATORVASTATIN CALCIUM 10MG TABLET NG SCH (22:07)
[2021-01-22] VITALS (98 sets, daily range): BP systolic 86–125; BP diastolic 54–84
[2021-01-22] MEDS: IPRATROPIUM/ALBUTEROL 0.5-3(2.5)MG/3ML NEB HHN SCH ×6 (00:43→20:12)
[2021-01-22] MEDS: MIDAZOLAM 100MG/100ML PREMIX IV PRN ×2 (01:11→14:40)
[2021-01-22] MEDS: FENTANYL CITRATE/PF 2,500 MCG in SODIUM CHLORIDE 0.9% 200 ML IV PRN ×3 (03:16→17:45)
[2021-01-22] MEDS: BLOOD SUGAR DIAGNOSTIC STRIP TEST SCH ×3 (05:33→17:46)
[2021-01-22] MEDS: INSULIN LISPRO 100 UNITS/ML SUBCUT SCH ×3 (05:48→17:58)
[2021-01-22 05:53] LABS: HEMATOCRIT. 31.7 % (36.0-48.0); HEMOGLOBIN. 10.3 g/dL (12.0-16.0); MEAN CORPUSCULAR HEMOGLOBIN 31.2 pg (28.0-32.0); MEAN PLATELET VOLUME 8.8 fl (7.4-10.4); PLATELET 305 x1000/uL (130-400); RED BLOOD CELL COUNT 3.31 mill/uL (4.2-5.4); RED CELL DISTRIBUTION WIDTH 14.4 % (11.6-14.6)
[2021-01-22 06:06] LABS: CHLORIDE 104 mEq/L (98-107)
[2021-01-22] MEDS: METHYLPREDNISOLONE SOD SUCC 40 MG/ML VIAL IV SCH ×3 (06:30→20:26)
[2021-01-22] MEDS: ASPIRIN 81MG TABLET NG SCH (08:12)
[2021-01-22] MEDS: MIDODRINE HCL 5MG TABLET GT SCH ×3 (08:12→17:39)
[2021-01-22] MEDS: CITALOPRAM HYDROBROMIDE 10MG TABLET GT SCH (08:12)
[2021-01-22] MEDS: ENOXAPARIN 60MG/0.6ML SYR SUBCUT SCH ×2 (08:14→20:26)
[2021-01-22 10:51] LABS: BG BASE EXCESS 6.8 mmol/L (-2.0-2.0); BG DEOXYHEMOGLOBIN 10.1 % (0.0-5.0); BG FRACTION INSPIRED OXYGEN 100; BG HCO3 ACT 35.3 mmol/L (22.0-26.0); BG METHEMOGLOBIN 0.3 % (0.0-1.5); BG OXYGEN SATURATION 89.8 % (92.0-98.5); BG OXYHEMOGLOBIN 88.6 % (94.0-97.0); BG PCO2 65.2 mmHg (35.0-45.0); BG PH 7.352 (7.350-7.450); BG PO2 56.5 mmHg (75.0-100.0); BG SAMPLE SITE LEFT RADIAL; BG TOTAL HEMOGLOBIN 17.3 g/dL (12.0-18.0); BG VENT MODE VENT - P/C
[2021-01-22] MEDS: FAMOTIDINE 20MG/2ML VIAL IV SCH (14:39)
[2021-01-22 15:55] LABS: PLATELET ESTIMATE NORMAL
[2021-01-22] MEDS: ATORVASTATIN CALCIUM 10MG TABLET NG SCH (20:26)
[2021-01-22] MEDS: ACETAMINOPHEN 325MG TABLET PO PRN (20:37)
[2021-01-22] MEDS ORDERED: INSULIN GLARGINE UD 100 UNITS/ML SYR SUBCUT SCH ×2 (22:00)
[2021-01-23] VITALS (96 sets, daily range): BP systolic 74–132; BP diastolic 52–87
[2021-01-23] MEDS: INSULIN LISPRO 100 UNITS/ML SUBCUT SCH ×5 (00:10→23:18)
[2021-01-23] MEDS: BLOOD SUGAR DIAGNOSTIC STRIP TEST SCH ×5 (00:10→23:09)
[2021-01-23] MEDS: IPRATROPIUM/ALBUTEROL 0.5-3(2.5)MG/3ML NEB HHN SCH ×6 (01:07→20:51)
[2021-01-23] MEDS: FENTANYL CITRATE/PF 2,500 MCG in SODIUM CHLORIDE 0.9% 200 ML IV PRN ×3 (01:38→22:36)
[2021-01-23 05:41] LABS: HEMATOCRIT. 29.9 % (36.0-48.0); HEMOGLOBIN. 9.5 g/dL (12.0-16.0); MEAN CORPUSCULAR HEMOGLOBIN 30.9 pg (28.0-32.0); MEAN CORPUSCULAR VOLUME 96.8 fL (81.0-99.0); MEAN PLATELET VOLUME 9.1 fl (7.4-10.4); PLATELET 266 x1000/uL (130-400); RED BLOOD CELL COUNT 3.09 mill/uL (4.2-5.4)
[2021-01-23] MEDS: METHYLPREDNISOLONE SOD SUCC 40 MG/ML VIAL IV SCH ×3 (05:49→21:06)
[2021-01-23] MEDS: MIDAZOLAM 100MG/100ML PREMIX IV PRN ×2 (06:30→17:09)
[2021-01-23 06:52] LABS: CHLORIDE 103 mEq/L (98-107)
[2021-01-23] MEDS: ENOXAPARIN 60MG/0.6ML SYR SUBCUT SCH ×2 (09:00→21:06)
[2021-01-23] MEDS: ASPIRIN 81MG TABLET NG SCH (09:00)
[2021-01-23] MEDS: CITALOPRAM HYDROBROMIDE 10MG TABLET GT SCH (09:27)
[2021-01-23] MEDS: FAMOTIDINE 20MG/2ML VIAL IV SCH (09:27)
[2021-01-23] MEDS: MIDODRINE HCL 5MG TABLET GT SCH ×3 (09:28→17:09)
[2021-01-23 10:10] LABS: BG BASE EXCESS 8.6 mmol/L (-2.0-2.0); BG CARBOXYHEMOGLOBIN 0.3 % (0.5-1.5); BG FRACTION INSPIRED OXYGEN 100; BG HCO3 ACT 37.6 mmol/L (22.0-26.0); BG METHEMOGLOBIN 0.1 % (0.0-1.5); BG OXYHEMOGLOBIN 92.6 % (94.0-97.0); BG PCO2 82.2 mmHg (35.0-45.0); BG PH 7.278 (7.350-7.450); BG PO2 69.8 mmHg (75.0-100.0); BG SAMPLE SITE RIGHT RADIAL; BG TOTAL HEMOGLOBIN 10.2 g/dL (12.0-18.0); BG VENT MODE VENT - P/C
[2021-01-23] MEDS ORDERED: INSULIN GLARGINE UD 100 UNITS/ML SYR SUBCUT SCH (11:30)
[2021-01-23 11:57] LABS: PLATELET ESTIMATE NORMAL
[2021-01-23] MEDS ORDERED: SODIUM POLYSTYRENE SULFONATE 15 G/60 ML BOT PO NR (12:00)
[2021-01-23] MEDS: PHENYLEPHRINE 100 MG in DEXT 5% WATER 240 ML IV PRN (17:35)
[2021-01-23] MEDS: ATORVASTATIN CALCIUM 10MG TABLET NG SCH (21:06)
[2021-01-23] MEDS: INSULIN GLARGINE UD 100 UNITS/ML SYR SUBCUT SCH (21:10)
[2021-01-24] VITALS (99 sets, daily range): BP systolic 87–119; BP diastolic 48–77
[2021-01-24] MEDS: IPRATROPIUM/ALBUTEROL 0.5-3(2.5)MG/3ML NEB HHN SCH ×6 (03:27→23:33)
[2021-01-24] MEDS: BLOOD SUGAR DIAGNOSTIC STRIP TEST SCH ×4 (05:34→23:51)
[2021-01-24] MEDS: METHYLPREDNISOLONE SOD SUCC 40 MG/ML VIAL IV SCH ×3 (05:34→21:08)
[2021-01-24] MEDS: INSULIN LISPRO 100 UNITS/ML SUBCUT SCH ×3 (06:06→17:15)
[2021-01-24 06:09] LABS: CHLORIDE 103 mEq/L (98-107)
[2021-01-24 06:12] LABS: HEMATOCRIT. 28.7 % (36.0-48.0); HEMOGLOBIN. 9.1 g/dL (12.0-16.0); MEAN CORPUSCULAR VOLUME 97.9 fL (81.0-99.0); MEAN PLATELET VOLUME 9.2 fl (7.4-10.4); PLATELET 236 x1000/uL (130-400); RED BLOOD CELL COUNT 2.93 mill/uL (4.2-5.4); RED CELL DISTRIBUTION WIDTH 15.5 % (11.6-14.6)
[2021-01-24] MEDS: ACETAMINOPHEN 325MG TABLET PO PRN (06:13)
[2021-01-24] MEDS: MIDAZOLAM 100MG/100ML PREMIX IV PRN ×2 (06:31)
[2021-01-24 07:48] LABS: PLATELET ESTIMATE NORMAL
[2021-01-24] MEDS: ENOXAPARIN 60MG/0.6ML SYR SUBCUT SCH ×2 (08:26→20:56)
[2021-01-24] MEDS: CITALOPRAM HYDROBROMIDE 10MG TABLET GT SCH (08:31)
[2021-01-24] MEDS: MIDODRINE HCL 5MG TABLET GT SCH ×3 (08:31→17:15)
[2021-01-24] MEDS: ASPIRIN 81MG TABLET NG SCH (08:31)
[2021-01-24] MEDS: FAMOTIDINE 20MG/2ML VIAL IV SCH (08:32)
[2021-01-24 10:14] LABS: BG BASE EXCESS 14.1 mmol/L (-2.0-2.0); BG CARBOXYHEMOGLOBIN 0.6 % (0.5-1.5); BG FRACTION INSPIRED OXYGEN 100; BG HCO3 ACT 42.2 mmol/L (22.0-26.0); BG METHEMOGLOBIN 0.1 % (0.0-1.5); BG OXYHEMOGLOBIN 93.3 % (94.0-97.0); BG PCO2 78.9 mmHg (35.0-45.0); BG PH 7.346 (7.350-7.450); BG PO2 74.5 mmHg (75.0-100.0); BG SAMPLE SITE LEFT RADIAL; BG TOTAL HEMOGLOBIN 9.6 g/dL (12.0-18.0); BG VENT MODE VENT - P/C
[2021-01-24] MEDS: INSULIN GLARGINE UD 100 UNITS/ML SYR SUBCUT SCH ×2 (10:39→21:09)
[2021-01-24] MEDS: FENTANYL CITRATE/PF 2,500 MCG in SODIUM CHLORIDE 0.9% 200 ML IV PRN ×2 (10:43→19:40)
[2021-01-24] MEDS: PHENYLEPHRINE 100 MG in DEXT 5% WATER 240 ML IV PRN (19:44)
[2021-01-24] MEDS: ATORVASTATIN CALCIUM 10MG TABLET NG SCH (20:57)
[2021-01-25] VITALS (92 sets, daily range): BP systolic 91–135; BP diastolic 57–90
[2021-01-25] MEDS: INSULIN LISPRO 100 UNITS/ML SUBCUT SCH ×5 (00:03→23:53)
[2021-01-25] MEDS: IPRATROPIUM/ALBUTEROL 0.5-3(2.5)MG/3ML NEB HHN SCH ×5 (00:05→20:33)
[2021-01-25] MEDS: ACETAMINOPHEN 325MG TABLET PO PRN (04:33)
[2021-01-25] MEDS: FENTANYL CITRATE/PF 2,500 MCG in SODIUM CHLORIDE 0.9% 200 ML IV PRN ×3 (04:56→20:55)
[2021-01-25] MEDS: BLOOD SUGAR DIAGNOSTIC STRIP TEST SCH ×4 (05:10→23:47)
[2021-01-25] MEDS: METHYLPREDNISOLONE SOD SUCC 40 MG/ML VIAL IV SCH ×3 (05:13→21:00)
[2021-01-25 05:50] LABS: HEMATOCRIT. 28.9 % (36.0-48.0); MEAN CORPUSCULAR HEMOGLOBIN 30.4 pg (28.0-32.0); MEAN CORPUSCULAR VOLUME 97.6 fL (81.0-99.0); MEAN PLATELET VOLUME 8.8 fl (7.4-10.4); PLATELET 235 x1000/uL (130-400); RED BLOOD CELL COUNT 2.96 mill/uL (4.2-5.4); RED CELL DISTRIBUTION WIDTH 15.1 % (11.6-14.6)
[2021-01-25 06:03] LABS: CHLORIDE 102 mEq/L (98-107)
[2021-01-25] MEDS: ENOXAPARIN 60MG/0.6ML SYR SUBCUT SCH ×2 (07:55→20:10)
[2021-01-25] MEDS: CITALOPRAM HYDROBROMIDE 10MG TABLET GT SCH (08:05)
[2021-01-25] MEDS: MIDODRINE HCL 5MG TABLET GT SCH ×3 (08:05→17:32)
[2021-01-25] MEDS: ASPIRIN 81MG TABLET NG SCH (08:05)
[2021-01-25] MEDS: FAMOTIDINE 20MG/2ML VIAL IV SCH (08:05)
[2021-01-25] MEDS: INSULIN GLARGINE UD 100 UNITS/ML SYR SUBCUT SCH ×2 (08:40→21:01)
[2021-01-25 09:04] LABS: BG BASE EXCESS 13.4 mmol/L (-2.0-2.0); BG CARBOXYHEMOGLOBIN 0.3 % (0.5-1.5); BG DEOXYHEMOGLOBIN 2.1 % (0.0-5.0); BG FRACTION INSPIRED OXYGEN 100; BG HCO3 ACT 40.4 mmol/L (22.0-26.0); BG METHEMOGLOBIN 0.3 % (0.0-1.5); BG OXYGEN SATURATION 97.9 % (92.0-98.5); BG OXYHEMOGLOBIN 97.3 % (94.0-97.0); BG PCO2 67.3 mmHg (35.0-45.0); BG PH 7.396 (7.350-7.450); BG PO2 109.9 mmHg (75.0-100.0); BG SAMPLE SITE LEFT RADIAL; BG TOTAL HEMOGLOBIN 9.8 g/dL (12.0-18.0); BG TOTAL RESPIRATORY RATE 46 b/min; BG VENT MODE VENT - P/C
[2021-01-25 09:12] LABS: PLATELET ESTIMATE NORMAL
[2021-01-25] MEDS ORDERED: SENNOSIDES/DOCUSATE SOD 8.6/50MG TABLET PO PRN (10:45)
[2021-01-25] MEDS ORDERED: DOCUSATE SODIUM 100MG CAPSULE PO PRN (10:45)
[2021-01-25] MEDS: MAGNESIUM HYDROXIDE 400MG/5ML 30ML UDC PO PRN (17:36)
[2021-01-25] MEDS: ATORVASTATIN CALCIUM 10MG TABLET NG SCH (21:00)
[2021-01-26] VITALS (102 sets, daily range): BP systolic 66–153; BP diastolic 47–92
[2021-01-26] MEDS: IPRATROPIUM/ALBUTEROL 0.5-3(2.5)MG/3ML NEB HHN SCH ×6 (00:05→20:47)
[2021-01-26] MEDS: FENTANYL CITRATE/PF 2,500 MCG in SODIUM CHLORIDE 0.9% 200 ML IV PRN ×3 (05:03→19:57)
[2021-01-26] MEDS: BLOOD SUGAR DIAGNOSTIC STRIP TEST SCH ×4 (05:15→23:11)
[2021-01-26] MEDS: METHYLPREDNISOLONE SOD SUCC 40 MG/ML VIAL IV SCH ×3 (05:25→21:11)
[2021-01-26] MEDS: INSULIN LISPRO 100 UNITS/ML SUBCUT SCH ×4 (05:25→23:11)
[2021-01-26 05:44] LABS: CHLORIDE 100 mEq/L (98-107)
[2021-01-26 05:45] LABS: HEMATOCRIT. 28.8 % (36.0-48.0); HEMOGLOBIN. 9.6 g/dL (12.0-16.0); MEAN CORPUSCULAR HEMOGLOBIN 32.3 pg (28.0-32.0); MEAN CORPUSCULAR VOLUME 96.8 fL (81.0-99.0); MEAN PLATELET VOLUME 9.1 fl (7.4-10.4); PLATELET 215 x1000/uL (130-400); RED BLOOD CELL COUNT 2.97 mill/uL (4.2-5.4); RED CELL DISTRIBUTION WIDTH 15.2 % (11.6-14.6)
[2021-01-26] MEDS: ENOXAPARIN 60MG/0.6ML SYR SUBCUT SCH ×2 (07:41→21:00)
[2021-01-26] MEDS: DOCUSATE SODIUM SUGAR FREE 100MG/10ML UDC NG PRN (08:22)
[2021-01-26] MEDS: MIDODRINE HCL 5MG TABLET GT SCH ×3 (08:22→18:00)
[2021-01-26] MEDS: POLYETHYLENE GLYCOL 3350 (17GM) 1 DOSE PACK PO PRN (08:22)
[2021-01-26] MEDS: FAMOTIDINE 20MG/2ML VIAL IV SCH (08:22)
[2021-01-26] MEDS: MAGNESIUM HYDROXIDE 400MG/5ML 30ML UDC PO PRN (08:22)
[2021-01-26] MEDS: ASPIRIN 81MG TABLET NG SCH (08:22)
[2021-01-26] MEDS: BISACODYL 10MG SUPP PR PRN (08:23)
[2021-01-26] MEDS: CITALOPRAM HYDROBROMIDE 10MG TABLET GT SCH (08:25)
[2021-01-26] MEDS ORDERED: PROPOFOL 10MG/ML 100ML 100 ML IV PRN (10:00)
[2021-01-26] MEDS: INSULIN GLARGINE UD 100 UNITS/ML SYR SUBCUT SCH ×2 (10:18→21:20)
[2021-01-26 13:06] LABS: BG BASE EXCESS 18.7 mmol/L (-2.0-2.0); BG CARBOXYHEMOGLOBIN 0.5 % (0.5-1.5); BG DEOXYHEMOGLOBIN 5.3 % (0.0-5.0); BG FRACTION INSPIRED OXYGEN 85; BG HCO3 ACT 47.9 mmol/L (22.0-26.0); BG METHEMOGLOBIN 0.1 % (0.0-1.5); BG OXYGEN SATURATION 94.7 % (92.0-98.5); BG OXYHEMOGLOBIN 94.1 % (94.0-97.0); BG PCO2 90.2 mmHg (35.0-45.0); BG PH 7.343 (7.350-7.450); BG PO2 79.7 mmHg (75.0-100.0); BG SAMPLE SITE LEFT RADIAL; BG TOTAL HEMOGLOBIN 10.3 g/dL (12.0-18.0); BG VENT MODE VENT - P/C
[2021-01-26 15:13] LABS: NUCLEATED RED BLOOD CELLS 1 /100 WBC; PLATELET ESTIMATE NORMAL
[2021-01-26] MEDS: MIDAZOLAM 100MG/100ML PREMIX IV PRN (16:27)
[2021-01-26] MEDS: ATORVASTATIN CALCIUM 10MG TABLET NG SCH (21:11)
[2021-01-27] VITALS (92 sets, daily range): BP systolic 83–157; BP diastolic 54–112
[2021-01-27] MEDS: IPRATROPIUM/ALBUTEROL 0.5-3(2.5)MG/3ML NEB HHN SCH ×6 (00:18→20:13)
[2021-01-27] MEDS: MIDAZOLAM 100MG/100ML PREMIX IV PRN (01:20)
[2021-01-27] MEDS: FENTANYL CITRATE/PF 2,500 MCG in SODIUM CHLORIDE 0.9% 200 ML IV PRN ×2 (02:53→15:13)
[2021-01-27 05:15] LABS: HEMATOCRIT. 25.5 % (36.0-48.0); HEMOGLOBIN. 8.1 g/dL (12.0-16.0); MEAN CORPUSCULAR HEMOGLOBIN 30.8 pg (28.0-32.0); MEAN CORPUSCULAR VOLUME 96.5 fL (81.0-99.0); PLATELET 189 x1000/uL (130-400); RED BLOOD CELL COUNT 2.64 mill/uL (4.2-5.4); RED CELL DISTRIBUTION WIDTH 15.1 % (11.6-14.6)
[2021-01-27] MEDS: BLOOD SUGAR DIAGNOSTIC STRIP TEST SCH ×4 (05:16→23:24)
[2021-01-27 05:21] LABS: CHLORIDE 97 mEq/L (98-107)
[2021-01-27] MEDS: METHYLPREDNISOLONE SOD SUCC 40 MG/ML VIAL IV SCH ×3 (05:23→20:46)
[2021-01-27] MEDS: INSULIN LISPRO 100 UNITS/ML SUBCUT SCH ×4 (05:25→23:28)
[2021-01-27 08:37] LABS: BG BASE EXCESS 22.7 mmol/L (-2.0-2.0); BG CARBOXYHEMOGLOBIN 0.6 % (0.5-1.5); BG FRACTION INSPIRED OXYGEN 85; BG HCO3 ACT 49.8 mmol/L (22.0-26.0); BG OXYHEMOGLOBIN 94.4 % (94.0-97.0); BG PCO2 75.2 mmHg (35.0-45.0); BG PH 7.439 (7.350-7.450); BG PO2 75.1 mmHg (75.0-100.0); BG SAMPLE SITE LEFT RADIAL; BG TOTAL HEMOGLOBIN 8.5 g/dL (12.0-18.0); BG TOTAL RESPIRATORY RATE 40 b/min; BG VENT MODE VENT - P/C
[2021-01-27] MEDS: ENOXAPARIN 60MG/0.6ML SYR SUBCUT SCH ×2 (09:12→20:45)
[2021-01-27] MEDS: MIDODRINE HCL 5MG TABLET GT SCH ×3 (09:14→17:00)
[2021-01-27] MEDS: ASPIRIN 81MG TABLET NG SCH (09:14)
[2021-01-27] MEDS: CITALOPRAM HYDROBROMIDE 10MG TABLET GT SCH (09:15)
[2021-01-27] MEDS: FAMOTIDINE 20MG/2ML VIAL IV SCH (09:15)
[2021-01-27 09:36] LABS: PLATELET ESTIMATE NORMAL
[2021-01-27] MEDS: INSULIN GLARGINE UD 100 UNITS/ML SYR SUBCUT SCH ×2 (10:58→21:16)
[2021-01-27] MEDS: METOCLOPRAMIDE HCL 10MG/2ML VIAL IV SCH ×3 (13:21→23:39)
[2021-01-27] MEDS: ATORVASTATIN CALCIUM 10MG TABLET NG SCH (20:45)
[2021-01-27] MEDS: DEXTROSE 50% WATER 50ML SYRINGE IV PRN (21:02)
[2021-01-27] MEDS: MIDAZOLAM HCL 100 MG in SODIUM CHLORIDE 0.9% 100 ML IV PRN (21:28)
[2021-01-28] VITALS (93 sets, daily range): BP systolic 84–161; BP diastolic 53–98
[2021-01-28] MEDS: IPRATROPIUM/ALBUTEROL 0.5-3(2.5)MG/3ML NEB HHN SCH ×6 (00:13→20:07)
[2021-01-28] MEDS: FENTANYL CITRATE/PF 2,500 MCG in SODIUM CHLORIDE 0.9% 200 ML IV PRN ×3 (02:44→19:15)
[2021-01-28] MEDS: BLOOD SUGAR DIAGNOSTIC STRIP TEST SCH ×2 (05:23→12:00)
[2021-01-28] MEDS: INSULIN LISPRO 100 UNITS/ML SUBCUT SCH ×3 (05:23→18:00)
[2021-01-28] MEDS: DEXTROSE 50% WATER 50ML SYRINGE IV PRN (05:24)
[2021-01-28] MEDS: METHYLPREDNISOLONE SOD SUCC 40 MG/ML VIAL IV SCH ×3 (05:29→21:17)
[2021-01-28] MEDS: METOCLOPRAMIDE HCL 10MG/2ML VIAL IV SCH ×3 (05:29→18:40)
[2021-01-28 05:32] LABS: CHLORIDE 98 mEq/L (98-107); HEMATOCRIT. 25.9 % (36.0-48.0); HEMOGLOBIN. 8.3 g/dL (12.0-16.0); MEAN CORPUSCULAR HEMOGLOBIN 30.9 pg (28.0-32.0); MEAN CORPUSCULAR VOLUME 96.4 fL (81.0-99.0); PLATELET 216 x1000/uL (130-400); RED BLOOD CELL COUNT 2.68 mill/uL (4.2-5.4); RED CELL DISTRIBUTION WIDTH 15.1 % (11.6-14.6)
[2021-01-28 07:50] LABS: NUCLEATED RED BLOOD CELLS 1 /100 WBC; PLATELET ESTIMATE NORMAL
[2021-01-28 09:09] LABS: BG BASE EXCESS 15.6 mmol/L (-2.0-2.0); BG CARBOXYHEMOGLOBIN 0.3 % (0.5-1.5); BG DEOXYHEMOGLOBIN 1.1 % (0.0-5.0); BG FRACTION INSPIRED OXYGEN 85; BG HCO3 ACT 42.9 mmol/L (22.0-26.0); BG METHEMOGLOBIN 0.4 % (0.0-1.5); BG OXYGEN SATURATION 98.9 % (92.0-98.5); BG OXYHEMOGLOBIN 98.2 % (94.0-97.0); BG PCO2 71.7 mmHg (35.0-45.0); BG PH 7.395 (7.350-7.450); BG PO2 198.8 mmHg (75.0-100.0); BG SAMPLE SITE LEFT RADIAL; BG TOTAL HEMOGLOBIN 9.6 g/dL (12.0-18.0); BG TOTAL RESPIRATORY RATE 40 b/min; BG VENT MODE VENT - P/C
[2021-01-28] MEDS: ENOXAPARIN 60MG/0.6ML SYR SUBCUT SCH ×2 (09:21→21:16)
[2021-01-28] MEDS: FAMOTIDINE 20MG/2ML VIAL IV SCH (09:21)
[2021-01-28] MEDS: MIDODRINE HCL 5MG TABLET GT SCH ×4 (09:22→16:22)
[2021-01-28] MEDS: ASPIRIN 81MG TABLET NG SCH (09:22)
[2021-01-28] MEDS: INSULIN GLARGINE UD 100 UNITS/ML SYR SUBCUT SCH (09:27)
[2021-01-28] MEDS ORDERED: INSULIN GLARGINE UD 100 UNITS/ML SYR SUBCUT SCH (10:00)
[2021-01-28] MEDS: MIDAZOLAM HCL 100 MG in SODIUM CHLORIDE 0.9% 100 ML IV PRN (14:13)
[2021-01-28] MEDS: ATORVASTATIN CALCIUM 10MG TABLET NG SCH (21:17)
[2021-01-29] VITALS (86 sets, daily range): BP systolic 83–149; BP diastolic 53–91
[2021-01-29] MEDS: IPRATROPIUM/ALBUTEROL 0.5-3(2.5)MG/3ML NEB HHN SCH ×5 (00:02→20:06)
[2021-01-29] MEDS: BLOOD SUGAR DIAGNOSTIC STRIP TEST SCH ×5 (00:07→23:09)
[2021-01-29] MEDS: METOCLOPRAMIDE HCL 10MG/2ML VIAL IV SCH ×5 (00:08→23:09)
[2021-01-29] MEDS: FENTANYL CITRATE/PF 2,500 MCG in SODIUM CHLORIDE 0.9% 200 ML IV PRN ×3 (01:46→22:10)
[2021-01-29] MEDS: MIDAZOLAM HCL 100 MG in SODIUM CHLORIDE 0.9% 100 ML IV PRN ×2 (03:41→12:44)
[2021-01-29] MEDS: INSULIN LISPRO 100 UNITS/ML SUBCUT SCH ×5 (05:38→23:13)
[2021-01-29] MEDS: METHYLPREDNISOLONE SOD SUCC 40 MG/ML VIAL IV SCH ×3 (05:39→21:15)
[2021-01-29 05:49] LABS: HEMATOCRIT. 27.1 % (36.0-48.0); HEMOGLOBIN. 8.7 g/dL (12.0-16.0); MEAN CORPUSCULAR HEMOGLOBIN 30.8 pg (28.0-32.0); MEAN CORPUSCULAR VOLUME 95.6 fL (81.0-99.0); MEAN PLATELET VOLUME 9.1 fl (7.4-10.4); PLATELET 233 x1000/uL (130-400); RED BLOOD CELL COUNT 2.83 mill/uL (4.2-5.4); RED CELL DISTRIBUTION WIDTH 15.2 % (11.6-14.6)
[2021-01-29 05:57] LABS: CHLORIDE 98 mEq/L (98-107)
[2021-01-29 07:45] LABS: BG BASE EXCESS 13.7 mmol/L (-2.0-2.0); BG CARBOXYHEMOGLOBIN 0.3 % (0.5-1.5); BG DEOXYHEMOGLOBIN 3.8 % (0.0-5.0); BG HCO3 ACT 40.2 mmol/L (22.0-26.0); BG METHEMOGLOBIN 0.2 % (0.0-1.5); BG OXYGEN SATURATION 96.2 % (92.0-98.5); BG OXYHEMOGLOBIN 95.7 % (94.0-97.0); BG PCO2 62.9 mmHg (35.0-45.0); BG PH 7.423 (7.350-7.450); BG PO2 87.8 mmHg (75.0-100.0); BG SAMPLE SITE LEFT RADIAL; BG TOTAL HEMOGLOBIN 9.6 g/dL (12.0-18.0); BG VENT MODE VENT - P/C
[2021-01-29] MEDS: FAMOTIDINE 20MG/2ML VIAL IV SCH (09:26)
[2021-01-29] MEDS: ENOXAPARIN 60MG/0.6ML SYR SUBCUT SCH ×2 (09:26→20:18)
[2021-01-29] MEDS: ASPIRIN 81MG TABLET NG SCH (09:26)
[2021-01-29] MEDS: MIDODRINE HCL 5MG TABLET GT SCH ×3 (09:27→17:17)
[2021-01-29] MEDS: PHENYLEPHRINE 100 MG in DEXT 5% WATER 240 ML IV PRN (09:28)
[2021-01-29] MEDS ORDERED: INSULIN GLARGINE UD 100 UNITS/ML SYR SUBCUT SCH (10:00)
[2021-01-29] MEDS: INSULIN GLARGINE UD 100 UNITS/ML SYR SUBCUT SCH ×2 (11:30→17:15)
[2021-01-29] MEDS ORDERED: PROPOFOL 10MG/ML 100ML 100 ML IV PRN (13:45)
[2021-01-29 14:18] LABS: NUCLEATED RED BLOOD CELLS 1 /100 WBC
[2021-01-29 14:19] LABS: PLATELET ESTIMATE NORMAL
[2021-01-29] MEDS: ATORVASTATIN CALCIUM 10MG TABLET NG SCH (20:18)
[2021-01-30] VITALS (70 sets, daily range): BP systolic 83–146; BP diastolic 55–93
[2021-01-30] MEDS: IPRATROPIUM/ALBUTEROL 0.5-3(2.5)MG/3ML NEB HHN SCH ×6 (01:08→20:24)
[2021-01-30] MEDS: MIDAZOLAM HCL 100 MG in SODIUM CHLORIDE 0.9% 100 ML IV PRN ×2 (03:28→18:12)
[2021-01-30] MEDS: METHYLPREDNISOLONE SOD SUCC 40 MG/ML VIAL IV SCH ×2 (05:04→18:10)
[2021-01-30] MEDS: BLOOD SUGAR DIAGNOSTIC STRIP TEST SCH ×4 (05:05→23:55)
[2021-01-30] MEDS: METOCLOPRAMIDE HCL 10MG/2ML VIAL IV SCH ×4 (05:05→23:55)
[2021-01-30] MEDS: INSULIN LISPRO 100 UNITS/ML SUBCUT SCH ×3 (05:13→18:00)
[2021-01-30 06:08] LABS: HEMATOCRIT. 27.8 % (36.0-48.0); MEAN CORPUSCULAR HEMOGLOBIN 30.9 pg (28.0-32.0); MEAN CORPUSCULAR VOLUME 95.9 fL (81.0-99.0); MEAN PLATELET VOLUME 9.2 fl (7.4-10.4); PLATELET 255 x1000/uL (130-400); RED CELL DISTRIBUTION WIDTH 15.4 % (11.6-14.6)
[2021-01-30] MEDS: FENTANYL CITRATE/PF 2,500 MCG in SODIUM CHLORIDE 0.9% 200 ML IV PRN ×3 (06:22→22:50)
[2021-01-30 06:58] LABS: CHLORIDE 99 mEq/L (98-107)
[2021-01-30 08:07] LABS: BG BASE EXCESS 8.3 mmol/L (-2.0-2.0); BG CARBOXYHEMOGLOBIN 0.3 % (0.5-1.5); BG DEOXYHEMOGLOBIN 6.5 % (0.0-5.0); BG HCO3 ACT 35.8 mmol/L (22.0-26.0); BG METHEMOGLOBIN 0.2 % (0.0-1.5); BG OXYGEN SATURATION 93.5 % (92.0-98.5); BG PCO2 68.5 mmHg (35.0-45.0); BG PH 7.336 (7.350-7.450); BG PO2 74.3 mmHg (75.0-100.0); BG SAMPLE SITE RIGHT RADIAL; BG TOTAL HEMOGLOBIN 9.6 g/dL (12.0-18.0); BG VENT MODE VENT - P/C
[2021-01-30] MEDS: DOCUSATE SODIUM SUGAR FREE 100MG/10ML UDC NG PRN (09:47)
[2021-01-30] MEDS: MIDODRINE HCL 5MG TABLET GT SCH ×3 (09:47→18:11)
[2021-01-30] MEDS: ASPIRIN 81MG TABLET NG SCH (09:47)
[2021-01-30] MEDS: FAMOTIDINE 20MG/2ML VIAL IV SCH (09:48)
[2021-01-30] MEDS: ENOXAPARIN 60MG/0.6ML SYR SUBCUT SCH ×2 (09:55→21:07)
[2021-01-30] MEDS: ACETAMINOPHEN 325MG TABLET PO PRN ×2 (09:56→23:55)
[2021-01-30] MEDS: INSULIN GLARGINE UD 100 UNITS/ML SYR SUBCUT SCH (09:57)
[2021-01-30 10:25] LABS: PLATELET ESTIMATE NORMAL
[2021-01-30] MEDS: CEFEPIME 1,000 MG in DEXTROSE 5% WATER 50 ML IV SCH ×2 (12:58→21:06)
[2021-01-30] MEDS: ATORVASTATIN CALCIUM 10MG TABLET NG SCH (21:07)
[2021-01-31] VITALS (99 sets, daily range): BP systolic 66–170; BP diastolic 46–111
[2021-01-31] MEDS: IPRATROPIUM/ALBUTEROL 0.5-3(2.5)MG/3ML NEB HHN SCH ×6 (00:23→20:40)
[2021-01-31] MEDS: DEXTROSE 50% WATER 50ML SYRINGE IV PRN (00:43)
[2021-01-31] MEDS: PHENYLEPHRINE 100 MG in DEXT 5% WATER 240 ML IV PRN ×2 (03:40→23:30)
[2021-01-31] MEDS: INSULIN LISPRO 100 UNITS/ML SUBCUT SCH ×5 (05:11→23:29)
[2021-01-31] MEDS: BLOOD SUGAR DIAGNOSTIC STRIP TEST SCH ×4 (05:11→23:59)
[2021-01-31] MEDS: METOCLOPRAMIDE HCL 10MG/2ML VIAL IV SCH ×4 (05:11→23:02)
[2021-01-31] MEDS: FENTANYL CITRATE/PF 2,500 MCG in SODIUM CHLORIDE 0.9% 200 ML IV PRN ×3 (05:53→23:30)
[2021-01-31 05:56] LABS: BASOPHILS % 0.3 % (0.0-2.0); HEMATOCRIT. 30.5 % (36.0-48.0); HEMOGLOBIN. 9.7 g/dL (12.0-16.0); MEAN CORPUSCULAR HEMOGLOBIN 30.8 pg (28.0-32.0); MEAN CORPUSCULAR VOLUME 96.2 fL (81.0-99.0); MEAN PLATELET VOLUME 8.9 fl (7.4-10.4); MONOCYTES % 3.4 % (2.0-8.0); NEUTROPHILS % 82.3 % (40.0-76.0); PLATELET 286 x1000/uL (130-400); RED BLOOD CELL COUNT 3.17 mill/uL (4.2-5.4); RED CELL DISTRIBUTION WIDTH 15.6 % (11.6-14.6)
[2021-01-31] MEDS: MIDAZOLAM HCL 100 MG in SODIUM CHLORIDE 0.9% 100 ML IV PRN ×2 (06:11→17:44)
[2021-01-31 08:26] LABS: BG BASE EXCESS 11.4 mmol/L (-2.0-2.0); BG CARBOXYHEMOGLOBIN 0.1 % (0.5-1.5); BG DEOXYHEMOGLOBIN 2.4 % (0.0-5.0); BG FRACTION INSPIRED OXYGEN 80; BG HCO3 ACT 38.8 mmol/L (22.0-26.0); BG METHEMOGLOBIN 0.3 % (0.0-1.5); BG OXYGEN SATURATION 97.6 % (92.0-98.5); BG OXYHEMOGLOBIN 97.2 % (94.0-97.0); BG PH 7.368 (7.350-7.450); BG PO2 109.1 mmHg (75.0-100.0); BG SAMPLE SITE LEFT RADIAL; BG VENT MODE VENT - P/C
[2021-01-31] MEDS: METHYLPREDNISOLONE SOD SUCC 40 MG/ML VIAL IV SCH ×2 (09:10→17:19)
[2021-01-31] MEDS: FAMOTIDINE 20MG/2ML VIAL IV SCH (09:10)
[2021-01-31] MEDS: ENOXAPARIN 60MG/0.6ML SYR SUBCUT SCH ×2 (09:10→21:08)
[2021-01-31] MEDS: DOCUSATE SODIUM SUGAR FREE 100MG/10ML UDC NG PRN (09:10)
[2021-01-31] MEDS: ASPIRIN 81MG TABLET NG SCH (09:10)
[2021-01-31] MEDS: BISACODYL 10MG SUPP PR PRN (09:11)
[2021-01-31] MEDS: MIDODRINE HCL 5MG TABLET GT SCH ×3 (09:11→16:18)
[2021-01-31] MEDS: CEFEPIME 1,000 MG in DEXTROSE 5% WATER 50 ML IV SCH ×2 (09:12→21:07)
[2021-01-31 09:37] LABS: CHLORIDE 99 mEq/L (98-107)
[2021-01-31] MEDS: INSULIN GLARGINE UD 100 UNITS/ML SYR SUBCUT SCH (10:00)
[2021-01-31] MEDS: ATORVASTATIN CALCIUM 10MG TABLET NG SCH (21:07)
[2021-01-31] MEDS: PROPOFOL 10MG/ML 100ML 100 ML IV PRN (23:03)
[2021-02-01] VITALS (98 sets, daily range): BP systolic 84–139; BP diastolic 51–102
[2021-02-01] MEDS: IPRATROPIUM/ALBUTEROL 0.5-3(2.5)MG/3ML NEB HHN SCH ×5 (02:50→20:40)
[2021-02-01 05:17] LABS: CHLORIDE 99 mEq/L (98-107)
[2021-02-01 05:18] LABS: HEMATOCRIT. 28.1 % (36.0-48.0); MEAN CORPUSCULAR HEMOGLOBIN 30.9 pg (28.0-32.0); MEAN CORPUSCULAR VOLUME 96.4 fL (81.0-99.0); MEAN PLATELET VOLUME 8.8 fl (7.4-10.4); PLATELET 271 x1000/uL (130-400); RED BLOOD CELL COUNT 2.91 mill/uL (4.2-5.4); RED CELL DISTRIBUTION WIDTH 15.8 % (11.6-14.6)
[2021-02-01] MEDS: METOCLOPRAMIDE HCL 10MG/2ML VIAL IV SCH ×4 (05:21→23:24)
[2021-02-01] MEDS: BISACODYL 10MG SUPP PR PRN (05:21)
[2021-02-01] MEDS: BLOOD SUGAR DIAGNOSTIC STRIP TEST SCH ×4 (05:36→23:24)
[2021-02-01] MEDS: INSULIN LISPRO 100 UNITS/ML SUBCUT SCH ×4 (05:36→23:24)
[2021-02-01] MEDS: PROPOFOL 10MG/ML 100ML 100 ML IV PRN (07:17)
[2021-02-01 08:38] LABS: BG BASE EXCESS 11.7 mmol/L (-2.0-2.0); BG CARBOXYHEMOGLOBIN 0.3 % (0.5-1.5); BG DEOXYHEMOGLOBIN 1.9 % (0.0-5.0); BG FRACTION INSPIRED OXYGEN 80; BG HCO3 ACT 37.1 mmol/L (22.0-26.0); BG METHEMOGLOBIN 0.2 % (0.0-1.5); BG OXYGEN SATURATION 98.1 % (92.0-98.5); BG OXYHEMOGLOBIN 97.6 % (94.0-97.0); BG PCO2 53.8 mmHg (35.0-45.0); BG PH 7.457 (7.350-7.450); BG PO2 116.2 mmHg (75.0-100.0); BG SAMPLE SITE LEFT RADIAL; BG TOTAL HEMOGLOBIN 9.7 g/dL (12.0-18.0); BG VENT MODE VENT - P/C
[2021-02-01 08:53] LABS: PLATELET ESTIMATE NORMAL
[2021-02-01] MEDS: ASPIRIN 81MG TABLET NG SCH (08:59)
[2021-02-01] MEDS: ENOXAPARIN 60MG/0.6ML SYR SUBCUT SCH ×2 (08:59→21:25)
[2021-02-01] MEDS: FAMOTIDINE 20MG/2ML VIAL IV SCH (09:00)
[2021-02-01] MEDS: MIDODRINE HCL 5MG TABLET GT SCH ×3 (09:00→17:25)
[2021-02-01] MEDS: DOCUSATE SODIUM SUGAR FREE 100MG/10ML UDC NG PRN ×3 (09:00→21:24)
[2021-02-01] MEDS: METHYLPREDNISOLONE SOD SUCC 40 MG/ML VIAL IV SCH ×2 (09:00→17:25)
[2021-02-01] MEDS: CEFEPIME 1,000 MG in DEXTROSE 5% WATER 50 ML IV SCH ×2 (09:01→21:24)
[2021-02-01] MEDS: INSULIN GLARGINE UD 100 UNITS/ML SYR SUBCUT SCH (09:09)
[2021-02-01] MEDS: SODIUM CHLORIDE 0.9% 1,000 ML IV SCH (12:06)
[2021-02-01 12:28] LABS: CLARITY URINE CLOUDY (CLEAR); COLOR URINE ORANGE (YELLOW); KETONES URINE TRACE (NEGATIVE); LEUKOCYTE ESTERASE URINE 2+ (NEGATIVE); NITRITE URINE POSITIVE (NEGATIVE); OCCULT BLOOD URINE 3+ (NEGATIVE); PROTEIN URINE 1+ (NEGATIVE); SPECIFIC GRAVITY URINE 1.022 (1.005-1.030)
[2021-02-01] MEDS: MIDAZOLAM HCL 100 MG in SODIUM CHLORIDE 0.9% 100 ML IV PRN (12:45)
[2021-02-01] MEDS: FENTANYL CITRATE/PF 2,500 MCG in SODIUM CHLORIDE 0.9% 200 ML IV PRN (12:45)
[2021-02-01] MEDS: ATORVASTATIN CALCIUM 10MG TABLET NG SCH (21:25)
[2021-02-02] VITALS (97 sets, daily range): BP systolic 81–153; BP diastolic 48–104
[2021-02-02] MEDS: IPRATROPIUM/ALBUTEROL 0.5-3(2.5)MG/3ML NEB HHN SCH ×7 (00:12→23:57)
[2021-02-02] MEDS: PROPOFOL 10MG/ML 100ML 100 ML IV PRN ×4 (00:54→21:55)
[2021-02-02] MEDS: FENTANYL CITRATE/PF 2,500 MCG in SODIUM CHLORIDE 0.9% 200 ML IV PRN ×3 (01:56→20:04)
[2021-02-02] MEDS: INSULIN LISPRO 100 UNITS/ML SUBCUT SCH ×2 (05:24→12:46)
[2021-02-02] MEDS: SODIUM CHLORIDE 0.9% 1,000 ML IV SCH (05:24)
[2021-02-02] MEDS: METOCLOPRAMIDE HCL 10MG/2ML VIAL IV SCH ×3 (05:24→17:02)
[2021-02-02] MEDS: BLOOD SUGAR DIAGNOSTIC STRIP TEST SCH ×2 (05:24→12:34)
[2021-02-02 05:43] LABS: CHLORIDE 101 mEq/L (98-107)
[2021-02-02] MEDS: MIDAZOLAM HCL 100 MG in SODIUM CHLORIDE 0.9% 100 ML IV PRN ×2 (06:35→18:29)
[2021-02-02] MEDS: FAMOTIDINE 20MG/2ML VIAL IV SCH (08:15)
[2021-02-02] MEDS: ASPIRIN 81MG TABLET NG SCH (08:16)
[2021-02-02] MEDS: POLYETHYLENE GLYCOL 3350 (17GM) 1 DOSE PACK PO PRN (08:16)
[2021-02-02] MEDS: DOCUSATE SODIUM SUGAR FREE 100MG/10ML UDC NG PRN (08:16)
[2021-02-02] MEDS: ENOXAPARIN 60MG/0.6ML SYR SUBCUT SCH ×2 (08:16→21:00)
[2021-02-02] MEDS: METHYLPREDNISOLONE SOD SUCC 40 MG/ML VIAL IV SCH ×2 (08:16→17:02)
[2021-02-02] MEDS: MIDODRINE HCL 5MG TABLET GT SCH ×3 (08:16→17:02)
[2021-02-02] MEDS: CEFEPIME 1,000 MG in DEXTROSE 5% WATER 50 ML IV SCH ×2 (08:17→20:04)
[2021-02-02 09:10] LABS: HEMATOCRIT. 27.6 % (36.0-48.0); HEMOGLOBIN. 9.2 g/dL (12.0-16.0); MEAN CORPUSCULAR HEMOGLOBIN 31.5 pg (28.0-32.0); MEAN CORPUSCULAR VOLUME 94.9 fL (81.0-99.0); MEAN PLATELET VOLUME 8.4 fl (7.4-10.4); PLATELET 318 x1000/uL (130-400); RED BLOOD CELL COUNT 2.91 mill/uL (4.2-5.4); RED CELL DISTRIBUTION WIDTH 15.6 % (11.6-14.6)
[2021-02-02 09:14] LABS: BG BASE EXCESS 7.2 mmol/L (-2.0-2.0); BG CARBOXYHEMOGLOBIN 0.5 % (0.5-1.5); BG DEOXYHEMOGLOBIN 2.9 % (0.0-5.0); BG FRACTION INSPIRED OXYGEN 60; BG HCO3 ACT 32.5 mmol/L (22.0-26.0); BG METHEMOGLOBIN 0.3 % (0.0-1.5); BG OXYGEN SATURATION 97.1 % (92.0-98.5); BG OXYHEMOGLOBIN 96.3 % (94.0-97.0); BG PCO2 50.9 mmHg (35.0-45.0); BG PH 7.423 (7.350-7.450); BG PO2 91.9 mmHg (75.0-100.0); BG SAMPLE SITE LEFT RADIAL; BG TOTAL HEMOGLOBIN 8.1 g/dL (12.0-18.0); BG VENT MODE VENT - P/C
[2021-02-02 11:20] LABS: PLATELET ESTIMATE NORMAL
[2021-02-02] MEDS: ACETYLCYSTEINE 100MG/ML 10% VIAL 4ML INH SCH ×2 (15:33→23:57)
[2021-02-02] MEDS: BISACODYL 10MG SUPP PR PRN (20:04)
[2021-02-02] MEDS: ATORVASTATIN CALCIUM 10MG TABLET NG SCH (20:04)
[2021-02-03] VITALS (95 sets, daily range): BP systolic 74–118; BP diastolic 45–80
[2021-02-03] MEDS ORDERED: DEXTROSE 50% WATER 50ML SYRINGE IV PRN (00:15)
[2021-02-03] MEDS: BLOOD SUGAR DIAGNOSTIC STRIP TEST SCH ×4 (00:35→17:50)
[2021-02-03] MEDS: INSULIN LISPRO 100 UNITS/ML SUBCUT SCH ×4 (00:39→18:04)
[2021-02-03] MEDS: METOCLOPRAMIDE HCL 10MG/2ML VIAL IV SCH ×4 (00:39→18:01)
[2021-02-03] MEDS: SODIUM CHLORIDE 0.9% 1,000 ML IV SCH ×2 (00:40→15:16)
[2021-02-03] MEDS: MIDAZOLAM HCL 100 MG in SODIUM CHLORIDE 0.9% 100 ML IV PRN ×2 (02:11→13:36)
[2021-02-03] MEDS: IPRATROPIUM/ALBUTEROL 0.5-3(2.5)MG/3ML NEB HHN SCH ×5 (03:51→20:30)
[2021-02-03] MEDS: FENTANYL CITRATE/PF 2,500 MCG in SODIUM CHLORIDE 0.9% 200 ML IV PRN ×3 (04:35→22:44)
[2021-02-03 05:03] LABS: HEMATOCRIT. 25.9 % (36.0-48.0); HEMOGLOBIN. 8.4 g/dL (12.0-16.0); MEAN CORPUSCULAR HEMOGLOBIN 31.6 pg (28.0-32.0); MEAN CORPUSCULAR VOLUME 97.5 fL (81.0-99.0); MEAN PLATELET VOLUME 8.3 fl (7.4-10.4); PLATELET 345 x1000/uL (130-400); RED BLOOD CELL COUNT 2.65 mill/uL (4.2-5.4)
[2021-02-03 05:07] LABS: CHLORIDE 102 mEq/L (98-107)
[2021-02-03] MEDS: PHENYLEPHRINE 100 MG in DEXT 5% WATER 240 ML IV PRN (05:32)
[2021-02-03] MEDS: PROPOFOL 10MG/ML 100ML 100 ML IV PRN ×3 (05:33→21:55)
[2021-02-03] MEDS: ACETYLCYSTEINE 100MG/ML 10% VIAL 4ML INH SCH ×2 (08:03→16:17)
[2021-02-03] MEDS: BISACODYL 10MG SUPP PR PRN (08:08)
[2021-02-03] MEDS: ENOXAPARIN 60MG/0.6ML SYR SUBCUT SCH (08:08)
[2021-02-03] MEDS: METHYLPREDNISOLONE SOD SUCC 40 MG/ML VIAL IV SCH ×2 (08:08→18:00)
[2021-02-03] MEDS: FAMOTIDINE 20MG/2ML VIAL IV SCH (08:08)
[2021-02-03] MEDS: MAGNESIUM HYDROXIDE 400MG/5ML 30ML UDC PO PRN (08:08)
[2021-02-03] MEDS: MIDODRINE HCL 5MG TABLET GT SCH ×3 (08:09→18:01)
[2021-02-03] MEDS: CEFEPIME 1,000 MG in DEXTROSE 5% WATER 50 ML IV SCH ×2 (08:10→20:13)
[2021-02-03 08:51] LABS: BG BASE EXCESS 5.3 mmol/L (-2.0-2.0); BG CARBOXYHEMOGLOBIN 0.8 % (0.5-1.5); BG DEOXYHEMOGLOBIN 2.2 % (0.0-5.0); BG FRACTION INSPIRED OXYGEN 80; BG HCO3 ACT 35.4 mmol/L (22.0-26.0); BG METHEMOGLOBIN 0.6 % (0.0-1.5); BG OXYGEN SATURATION 97.8 % (92.0-98.5); BG OXYHEMOGLOBIN 96.4 % (94.0-97.0); BG PCO2 98.6 mmHg (35.0-45.0); BG PH 7.173 (7.350-7.450); BG PO2 119.6 mmHg (75.0-100.0); BG SAMPLE SITE RIGHT RADIAL; BG TOTAL HEMOGLOBIN 8.6 g/dL (12.0-18.0); BG VENT MODE VENT - P/C
[2021-02-03 12:43] LABS: PLATELET ESTIMATE NORMAL
[2021-02-03 12:47] LABS: BG BASE EXCESS 9.5 mmol/L (-2.0-2.0); BG CARBOXYHEMOGLOBIN 0.3 % (0.5-1.5); BG DEOXYHEMOGLOBIN 3.7 % (0.0-5.0); BG FRACTION INSPIRED OXYGEN 80; BG HCO3 ACT 38.1 mmol/L (22.0-26.0); BG METHEMOGLOBIN 0.3 % (0.0-1.5); BG OXYGEN SATURATION 96.3 % (92.0-98.5); BG OXYHEMOGLOBIN 95.7 % (94.0-97.0); BG PH 7.285 (7.350-7.450); BG PO2 85.8 mmHg (75.0-100.0); BG SAMPLE SITE RIGHT BRACHIAL; BG TOTAL HEMOGLOBIN 9.2 g/dL (12.0-18.0); BG VENT MODE VENT - P/C
[2021-02-04] VITALS (86 sets, daily range): BP systolic 71–179; BP diastolic 41–108
[2021-02-04] MEDS: INSULIN LISPRO 100 UNITS/ML SUBCUT SCH ×4 (00:16→18:39)
[2021-02-04] MEDS: BLOOD SUGAR DIAGNOSTIC STRIP TEST SCH ×4 (00:17→17:45)
[2021-02-04] MEDS: METOCLOPRAMIDE HCL 10MG/2ML VIAL IV SCH ×4 (00:17→17:19)
[2021-02-04] MEDS: IPRATROPIUM/ALBUTEROL 0.5-3(2.5)MG/3ML NEB HHN SCH ×5 (00:22→20:24)
[2021-02-04] MEDS: ACETYLCYSTEINE 100MG/ML 10% VIAL 4ML INH SCH ×4 (00:22→20:24)
[2021-02-04 03:57] LABS: HEMATOCRIT. 25.7 % (36.0-48.0); HEMOGLOBIN. 8.2 g/dL (12.0-16.0); MEAN CORPUSCULAR HEMOGLOBIN 31.1 pg (28.0-32.0); MEAN CORPUSCULAR VOLUME 97.4 fL (81.0-99.0); MEAN PLATELET VOLUME 8.1 fl (7.4-10.4); PLATELET 288 x1000/uL (130-400); RED BLOOD CELL COUNT 2.64 mill/uL (4.2-5.4); RED CELL DISTRIBUTION WIDTH 15.7 % (11.6-14.6)
[2021-02-04 04:13] LABS: CHLORIDE 99 mEq/L (98-107)
[2021-02-04] MEDS: MIDAZOLAM HCL 100 MG in SODIUM CHLORIDE 0.9% 100 ML IV PRN ×2 (04:54→17:18)
[2021-02-04] MEDS: PROPOFOL 10MG/ML 100ML 100 ML IV PRN ×2 (04:57→11:27)
[2021-02-04] MEDS: SODIUM CHLORIDE 0.9% 1,000 ML IV SCH ×2 (04:58→22:06)
[2021-02-04] MEDS: FENTANYL CITRATE/PF 2,500 MCG in SODIUM CHLORIDE 0.9% 200 ML IV PRN ×2 (08:14→17:45)
[2021-02-04 08:21] LABS: NUCLEATED RED BLOOD CELLS 2 /100 WBC; PLATELET ESTIMATE NORMAL
[2021-02-04 08:41] LABS: BG BASE EXCESS 12.8 mmol/L (-2.0-2.0); BG CARBOXYHEMOGLOBIN 0.2 % (0.5-1.5); BG DEOXYHEMOGLOBIN 5.8 % (0.0-5.0); BG HCO3 ACT 38.9 mmol/L (22.0-26.0); BG OXYGEN SATURATION 94.2 % (92.0-98.5); BG PCO2 61.8 mmHg (35.0-45.0); BG PH 7.417 (7.350-7.450); BG PO2 70.4 mmHg (75.0-100.0); BG SAMPLE SITE RIGHT RADIAL; BG TOTAL HEMOGLOBIN 8.2 g/dL (12.0-18.0); BG VENT MODE VENT - P/C
[2021-02-04] MEDS: FAMOTIDINE 20MG/2ML VIAL IV SCH (09:32)
[2021-02-04] MEDS: MIDODRINE HCL 5MG TABLET GT SCH ×3 (09:32→17:19)
[2021-02-04] MEDS: METHYLPREDNISOLONE SOD SUCC 40 MG/ML VIAL IV SCH (09:33)
[2021-02-04] MEDS ORDERED: SODIUM CHLORIDE 0.9% 500 ML IV NR (11:06)
[2021-02-04] MEDS ORDERED: ALBUMIN HUMAN 25GM/500ML (5%) IV NR (12:30)
[2021-02-05] VITALS (90 sets, daily range): BP systolic 65–151; BP diastolic 37–96
[2021-02-05] MEDS: BLOOD SUGAR DIAGNOSTIC STRIP TEST SCH ×4 (00:19→18:02)
[2021-02-05] MEDS: IPRATROPIUM/ALBUTEROL 0.5-3(2.5)MG/3ML NEB HHN SCH ×7 (00:22→23:40)
[2021-02-05] MEDS: INSULIN LISPRO 100 UNITS/ML SUBCUT SCH ×5 (00:31→23:55)
[2021-02-05] MEDS: METOCLOPRAMIDE HCL 10MG/2ML VIAL IV SCH ×5 (00:32→23:56)
[2021-02-05] MEDS ORDERED: ACETAMINOPHEN 650MG SUPP PR PRN (02:15)
[2021-02-05] MEDS: FENTANYL CITRATE/PF 2,500 MCG in SODIUM CHLORIDE 0.9% 200 ML IV PRN ×3 (02:43→20:30)
[2021-02-05] MEDS: PHENYLEPHRINE 100 MG in DEXT 5% WATER 240 ML IV PRN (06:18)
[2021-02-05] MEDS: MIDAZOLAM HCL 100 MG in SODIUM CHLORIDE 0.9% 100 ML IV PRN (06:39)
[2021-02-05] MEDS: ACETYLCYSTEINE 100MG/ML 10% VIAL 4ML INH SCH ×2 (07:48→23:40)
[2021-02-05 08:54] LABS: BG BASE EXCESS 13.5 mmol/L (-2.0-2.0); BG CARBOXYHEMOGLOBIN 0.2 % (0.5-1.5); BG DEOXYHEMOGLOBIN 2.3 % (0.0-5.0); BG FRACTION INSPIRED OXYGEN 80; BG HCO3 ACT 39.3 mmol/L (22.0-26.0); BG OXYGEN SATURATION 97.7 % (92.0-98.5); BG OXYHEMOGLOBIN 97.5 % (94.0-97.0); BG PCO2 59.4 mmHg (35.0-45.0); BG PH 7.439 (7.350-7.450); BG PO2 106.8 mmHg (75.0-100.0); BG SAMPLE SITE RIGHT RADIAL; BG TOTAL HEMOGLOBIN 8.7 g/dL (12.0-18.0); BG TOTAL RESPIRATORY RATE 40 b/min; BG VENT MODE VENT - P/C
[2021-02-05] MEDS: DOCUSATE SODIUM SUGAR FREE 100MG/10ML UDC NG PRN (09:15)
[2021-02-05] MEDS: MIDODRINE HCL 5MG TABLET GT SCH (09:15)
[2021-02-05] MEDS: POLYETHYLENE GLYCOL 3350 (17GM) 1 DOSE PACK PO PRN (09:16)
[2021-02-05] MEDS: FAMOTIDINE 20MG/2ML VIAL IV SCH (09:16)
[2021-02-05 12:56] LABS: BASOPHILS % 0.2 % (0.0-2.0); EOSINOPHILS % 0.8 % (0.0-5.0); HEMATOCRIT. 23.9 % (36.0-48.0); HEMOGLOBIN. 7.7 g/dL (12.0-16.0); LYMPHOCYTES % 9.4 % (20.0-50.0); MEAN CORPUSCULAR HEMOGLOBIN 30.5 pg (28.0-32.0); MEAN PLATELET VOLUME 7.7 fl (7.4-10.4); MONOCYTES % 2.4 % (2.0-8.0); NEUTROPHILS % 87.2 % (40.0-76.0); PLATELET 280 x1000/uL (130-400); RED BLOOD CELL COUNT 2.52 mill/uL (4.2-5.4); RED CELL DISTRIBUTION WIDTH 15.8 % (11.6-14.6)
[2021-02-05 13:02] LABS: CHLORIDE 99 mEq/L (98-107)
[2021-02-05] MEDS: SODIUM CHLORIDE 0.9% 1,000 ML IV SCH (14:47)
[2021-02-06] VITALS (84 sets, daily range): BP systolic 71–133; BP diastolic 37–89
[2021-02-06] MEDS: IPRATROPIUM/ALBUTEROL 0.5-3(2.5)MG/3ML NEB HHN SCH ×5 (03:52→20:03)
[2021-02-06 05:06] LABS: BASOPHILS % 0.2 % (0.0-2.0); EOSINOPHILS % 1.1 % (0.0-5.0); HEMATOCRIT. 23.7 % (36.0-48.0); HEMOGLOBIN. 7.6 g/dL (12.0-16.0); LYMPHOCYTES % 7.4 % (20.0-50.0); MEAN CORPUSCULAR HEMOGLOBIN 31.1 pg (28.0-32.0); MEAN CORPUSCULAR VOLUME 96.5 fL (81.0-99.0); MEAN PLATELET VOLUME 7.9 fl (7.4-10.4); NEUTROPHILS % 88.3 % (40.0-76.0); PLATELET 270 x1000/uL (130-400); RED BLOOD CELL COUNT 2.46 mill/uL (4.2-5.4); RED CELL DISTRIBUTION WIDTH 15.9 % (11.6-14.6)
[2021-02-06 05:13] LABS: CHLORIDE 98 mEq/L (98-107)
[2021-02-06] MEDS: METOCLOPRAMIDE HCL 10MG/2ML VIAL IV SCH ×3 (05:55→17:12)
[2021-02-06] MEDS: INSULIN LISPRO 100 UNITS/ML SUBCUT SCH ×3 (05:55→18:23)
[2021-02-06] MEDS: PHENYLEPHRINE 100 MG in DEXT 5% WATER 240 ML IV PRN (05:57)
[2021-02-06] MEDS: SODIUM CHLORIDE 0.9% 1,000 ML IV SCH (05:58)
[2021-02-06] MEDS: MIDAZOLAM HCL 100 MG in SODIUM CHLORIDE 0.9% 100 ML IV PRN ×2 (05:58→20:23)
[2021-02-06] MEDS: BLOOD SUGAR DIAGNOSTIC STRIP TEST SCH ×4 (06:02→17:12)
[2021-02-06] MEDS: FAMOTIDINE 20MG/2ML VIAL IV SCH (09:14)
[2021-02-06] MEDS: FENTANYL CITRATE/PF 2,500 MCG in SODIUM CHLORIDE 0.9% 200 ML IV PRN ×2 (09:17→20:24)
[2021-02-06 12:59] LABS: BG BASE EXCESS 10.2 mmol/L (-2.0-2.0); BG CARBOXYHEMOGLOBIN 0.5 % (0.5-1.5); BG FRACTION INSPIRED OXYGEN 80; BG HCO3 ACT 35.6 mmol/L (22.0-26.0); BG METHEMOGLOBIN 0.3 % (0.0-1.5); BG OXYHEMOGLOBIN 95.2 % (94.0-97.0); BG PCO2 53.2 mmHg (35.0-45.0); BG PH 7.443 (7.350-7.450); BG PO2 80.6 mmHg (75.0-100.0); BG SAMPLE SITE RIGHT RADIAL; BG TOTAL HEMOGLOBIN 8.9 g/dL (12.0-18.0); BG VENT MODE VENT - P/C
[2021-02-06] MEDS: ACETAMINOPHEN 650MG/20.3ML UDC PO PRN (19:46)
[2021-02-06] MEDS: ACETYLCYSTEINE 100MG/ML 10% VIAL 4ML INH SCH (23:55)
[2021-02-07] VITALS (54 sets, daily range): BP systolic 78–136; BP diastolic 31–99
[2021-02-07] MEDS: IPRATROPIUM/ALBUTEROL 0.5-3(2.5)MG/3ML NEB HHN SCH ×6 (00:12→20:32)
[2021-02-07] MEDS: ACETYLCYSTEINE 100MG/ML 10% VIAL 4ML INH SCH ×3 (00:12→16:11)
[2021-02-07] MEDS: SODIUM CHLORIDE 0.9% 1,000 ML IV SCH ×2 (01:00→16:21)
[2021-02-07] MEDS: METOCLOPRAMIDE HCL 10MG/2ML VIAL IV SCH ×4 (01:02→17:30)
[2021-02-07 05:53] LABS: CHLORIDE 102 mEq/L (98-107)
[2021-02-07 05:59] LABS: BASOPHILS % 0.4 % (0.0-2.0); EOSINOPHILS % 1.7 % (0.0-5.0); HEMOGLOBIN. 7.6 g/dL (12.0-16.0); LYMPHOCYTES % 7.2 % (20.0-50.0); MEAN CORPUSCULAR HEMOGLOBIN 30.8 pg (28.0-32.0); MEAN CORPUSCULAR VOLUME 96.8 fL (81.0-99.0); MEAN PLATELET VOLUME 8.2 fl (7.4-10.4); MONOCYTES % 3.3 % (2.0-8.0); NEUTROPHILS % 87.4 % (40.0-76.0); PLATELET 266 x1000/uL (130-400); RED BLOOD CELL COUNT 2.47 mill/uL (4.2-5.4); RED CELL DISTRIBUTION WIDTH 16.3 % (11.6-14.6)
[2021-02-07] MEDS: INSULIN LISPRO 100 UNITS/ML SUBCUT SCH ×4 (06:00→17:31)
[2021-02-07] MEDS: BLOOD SUGAR DIAGNOSTIC STRIP TEST SCH ×4 (06:18→17:30)
[2021-02-07] MEDS: MIDAZOLAM HCL 100 MG in SODIUM CHLORIDE 0.9% 100 ML IV PRN ×2 (06:25→15:44)
[2021-02-07] MEDS: FAMOTIDINE 20MG/2ML VIAL IV SCH (09:30)
[2021-02-07 09:36] LABS: BG BASE EXCESS 8.2 mmol/L (-2.0-2.0); BG CARBOXYHEMOGLOBIN 1.1 % (0.5-1.5); BG DEOXYHEMOGLOBIN 2.2 % (0.0-5.0); BG FRACTION INSPIRED OXYGEN 80; BG HCO3 ACT 34.3 mmol/L (22.0-26.0); BG OXYGEN SATURATION 97.8 % (92.0-98.5); BG OXYHEMOGLOBIN 96.7 % (94.0-97.0); BG PCO2 58.7 mmHg (35.0-45.0); BG PH 7.385 (7.350-7.450); BG PO2 108.3 mmHg (75.0-100.0); BG SAMPLE SITE RIGHT RADIAL; BG TOTAL HEMOGLOBIN 8.4 g/dL (12.0-18.0); BG VENT MODE VENT - P/C
[2021-02-07] MEDS: FENTANYL CITRATE/PF 2,500 MCG in SODIUM CHLORIDE 0.9% 200 ML IV PRN ×2 (10:46→23:26)
[2021-02-07] MEDS: PHENYLEPHRINE 100 MG in DEXT 5% WATER 240 ML IV PRN (16:22)
[2021-02-07] MEDS: ACETAMINOPHEN 650MG/20.3ML UDC PO PRN (19:27)
[2021-02-08] VITALS (89 sets, daily range): BP systolic 76–133; BP diastolic 35–86
[2021-02-08] MEDS: METOCLOPRAMIDE HCL 10MG/2ML VIAL IV SCH ×4 (00:28→16:30)
[2021-02-08] MEDS: INSULIN LISPRO 100 UNITS/ML SUBCUT SCH ×4 (00:29→17:14)
[2021-02-08] MEDS: BLOOD SUGAR DIAGNOSTIC STRIP TEST SCH ×4 (00:29→17:11)
[2021-02-08] MEDS: IPRATROPIUM/ALBUTEROL 0.5-3(2.5)MG/3ML NEB HHN SCH ×6 (00:34→20:00)
[2021-02-08] MEDS: MIDAZOLAM HCL 100 MG in SODIUM CHLORIDE 0.9% 100 ML IV PRN ×3 (02:36→21:59)
[2021-02-08 06:01] LABS: CHLORIDE 102 mEq/L (98-107)
[2021-02-08 06:02] LABS: BASOPHILS % 0.3 % (0.0-2.0); EOSINOPHILS % 1.7 % (0.0-5.0); HEMATOCRIT. 25.4 % (36.0-48.0); LYMPHOCYTES % 10.2 % (20.0-50.0); MEAN CORPUSCULAR HEMOGLOBIN 31.1 pg (28.0-32.0); MEAN CORPUSCULAR VOLUME 98.4 fL (81.0-99.0); MONOCYTES % 6.5 % (2.0-8.0); NEUTROPHILS % 81.3 % (40.0-76.0); PLATELET 280 x1000/uL (130-400); RED BLOOD CELL COUNT 2.58 mill/uL (4.2-5.4); RED CELL DISTRIBUTION WIDTH 16.7 % (11.6-14.6)
[2021-02-08] MEDS: PHENYLEPHRINE 100 MG in DEXT 5% WATER 240 ML IV PRN ×2 (06:03→16:30)
[2021-02-08] MEDS: ACETAMINOPHEN 650MG/20.3ML UDC PO PRN ×2 (06:59→22:46)
[2021-02-08 07:53] LABS: BG BASE EXCESS 4.9 mmol/L (-2.0-2.0); BG CARBOXYHEMOGLOBIN 0.8 % (0.5-1.5); BG DEOXYHEMOGLOBIN 16.6 % (0.0-5.0); BG FRACTION INSPIRED OXYGEN 90; BG HCO3 ACT 34.9 mmol/L (22.0-26.0); BG METHEMOGLOBIN 0.4 % (0.0-1.5); BG OXYGEN SATURATION 83.2 % (92.0-98.5); BG OXYHEMOGLOBIN 82.2 % (94.0-97.0); BG PCO2 97.9 mmHg (35.0-45.0); BG PO2 57.4 mmHg (75.0-100.0); BG SAMPLE SITE RIGHT RADIAL; BG TOTAL HEMOGLOBIN 8.5 g/dL (12.0-18.0); BG TOTAL RESPIRATORY RATE 43 b/min; BG VENT MODE VENT - P/C
[2021-02-08] MEDS: FENTANYL CITRATE/PF 2,500 MCG in SODIUM CHLORIDE 0.9% 200 ML IV PRN ×2 (07:57→17:41)
[2021-02-08] MEDS: SODIUM CHLORIDE 0.9% 1,000 ML IV SCH ×2 (08:11→08:28)
[2021-02-08] MEDS: FAMOTIDINE 20MG/2ML VIAL IV SCH (08:28)
[2021-02-08 14:31] LABS: BG BASE EXCESS 3.9 mmol/L (-2.0-2.0); BG CARBOXYHEMOGLOBIN 1.2 % (0.5-1.5); BG DEOXYHEMOGLOBIN 6.7 % (0.0-5.0); BG FRACTION INSPIRED OXYGEN 90; BG HCO3 ACT 33.8 mmol/L (22.0-26.0); BG METHEMOGLOBIN 0.1 % (0.0-1.5); BG OXYGEN SATURATION 93.2 % (92.0-98.5); BG PCO2 94.7 mmHg (35.0-45.0); BG PH 7.171 (7.350-7.450); BG PO2 74.2 mmHg (75.0-100.0); BG TOTAL HEMOGLOBIN 8.6 g/dL (12.0-18.0); BG VENT MODE VENT - P/C
[2021-02-09] VITALS (87 sets, daily range): BP systolic 84–119; BP diastolic 51–90
[2021-02-09] MEDS: METOCLOPRAMIDE HCL 10MG/2ML VIAL IV SCH ×5 (00:19→23:49)
[2021-02-09] MEDS: BLOOD SUGAR DIAGNOSTIC STRIP TEST SCH ×5 (00:19→23:48)
[2021-02-09] MEDS: INSULIN LISPRO 100 UNITS/ML SUBCUT SCH ×5 (00:21→23:50)
[2021-02-09] MEDS: IPRATROPIUM/ALBUTEROL 0.5-3(2.5)MG/3ML NEB HHN SCH ×6 (01:09→20:15)
[2021-02-09] MEDS: FENTANYL CITRATE/PF 2,500 MCG in SODIUM CHLORIDE 0.9% 200 ML IV PRN ×3 (02:09→17:58)
[2021-02-09] MEDS: PHENYLEPHRINE 100 MG in DEXT 5% WATER 240 ML IV PRN ×3 (02:21→18:28)
[2021-02-09] MEDS: SODIUM CHLORIDE 0.9% 1,000 ML IV SCH ×2 (02:35→18:07)
[2021-02-09 05:43] LABS: BASOPHILS % 0.6 % (0.0-2.0); EOSINOPHILS % 0.2 % (0.0-5.0); HEMATOCRIT. 23.2 % (36.0-48.0); HEMOGLOBIN. 7.5 g/dL (12.0-16.0); LYMPHOCYTES % 9.4 % (20.0-50.0); MEAN CORPUSCULAR HEMOGLOBIN 32.3 pg (28.0-32.0); MEAN CORPUSCULAR VOLUME 100.1 fL (81.0-99.0); MEAN PLATELET VOLUME 9.2 fl (7.4-10.4); MONOCYTES % 8.6 % (2.0-8.0); NEUTROPHILS % 81.2 % (40.0-76.0); PLATELET 232 x1000/uL (130-400); RED BLOOD CELL COUNT 2.32 mill/uL (4.2-5.4); RED CELL DISTRIBUTION WIDTH 16.9 % (11.6-14.6)
[2021-02-09 05:50] LABS: CHLORIDE 104 mEq/L (98-107)
[2021-02-09] MEDS: MIDAZOLAM HCL 100 MG in SODIUM CHLORIDE 0.9% 100 ML IV PRN ×2 (08:20→18:10)
[2021-02-09] MEDS: FAMOTIDINE 20MG/2ML VIAL IV SCH (08:34)
[2021-02-09 09:51] LABS: BG BASE EXCESS 4.5 mmol/L (-2.0-2.0); BG DEOXYHEMOGLOBIN 3.5 % (0.0-5.0); BG FRACTION INSPIRED OXYGEN 100; BG HCO3 ACT 32.1 mmol/L (22.0-26.0); BG METHEMOGLOBIN 0.3 % (0.0-1.5); BG OXYGEN SATURATION 96.5 % (92.0-98.5); BG OXYHEMOGLOBIN 95.2 % (94.0-97.0); BG PCO2 73.6 mmHg (35.0-45.0); BG PH 7.257 (7.350-7.450); BG PO2 95.8 mmHg (75.0-100.0); BG SAMPLE SITE RIGHT RADIAL; BG TOTAL HEMOGLOBIN 6.2 g/dL (12.0-18.0); BG VENT MODE VENT - P/C
[2021-02-09 11:38] LABS: TOTAL IRON BINDING CAPACITY 219 ug/dL (250-450)
[2021-02-09 13:05] LABS: VITAMIN B12 SERUM > 2000.0 pg/mL (211-911)
[2021-02-10] VITALS (80 sets, daily range): BP systolic 80–133; BP diastolic 51–81
[2021-02-10] MEDS: IPRATROPIUM/ALBUTEROL 0.5-3(2.5)MG/3ML NEB HHN SCH ×2 (00:27→04:30)
[2021-02-10] MEDS: FENTANYL CITRATE/PF 2,500 MCG in SODIUM CHLORIDE 0.9% 200 ML IV PRN ×3 (03:38→19:59)
[2021-02-10] MEDS: PHENYLEPHRINE 100 MG in DEXT 5% WATER 240 ML IV PRN ×3 (04:33→19:57)
[2021-02-10 05:04] LABS: HEMATOCRIT. 22.2 % (36.0-48.0); MEAN CORPUSCULAR HEMOGLOBIN 31.5 pg (28.0-32.0); MEAN PLATELET VOLUME 8.6 fl (7.4-10.4); PLATELET 210 x1000/uL (130-400); RED CELL DISTRIBUTION WIDTH 17.4 % (11.6-14.6)
[2021-02-10 05:10] LABS: HEMOGLOBIN. 6.9 g/dL (12.0-16.0)
[2021-02-10 05:14] LABS: CHLORIDE 103 mEq/L (98-107)
[2021-02-10] MEDS: MIDAZOLAM HCL 100 MG in SODIUM CHLORIDE 0.9% 100 ML IV PRN ×3 (05:29→23:23)
[2021-02-10] MEDS: SODIUM CHLORIDE 0.9% 1,000 ML IV SCH (05:58)
[2021-02-10] MEDS: METOCLOPRAMIDE HCL 10MG/2ML VIAL IV SCH ×4 (05:58→23:31)
[2021-02-10] MEDS: INSULIN LISPRO 100 UNITS/ML SUBCUT SCH ×4 (06:14→23:32)
[2021-02-10] MEDS: BLOOD SUGAR DIAGNOSTIC STRIP TEST SCH ×4 (06:15→23:31)
[2021-02-10 07:10] LABS: BG BASE EXCESS 3.1 mmol/L (-2.0-2.0); BG CARBOXYHEMOGLOBIN 1.1 % (0.5-1.5); BG DEOXYHEMOGLOBIN 6.5 % (0.0-5.0); BG FRACTION INSPIRED OXYGEN 90; BG METHEMOGLOBIN 0.2 % (0.0-1.5); BG OXYGEN SATURATION 93.4 % (92.0-98.5); BG OXYHEMOGLOBIN 92.2 % (94.0-97.0); BG PCO2 69.8 mmHg (35.0-45.0); BG PH 7.266 (7.350-7.450); BG PO2 73.7 mmHg (75.0-100.0); BG SAMPLE SITE RIGHT RADIAL; BG TOTAL HEMOGLOBIN 8.6 g/dL (12.0-18.0); BG TOTAL RESPIRATORY RATE 45 b/min; BG VENT MODE VENT - P/C
[2021-02-10 08:29] LABS: BG CHLORIDE 100 mmol/L (98-106); BG POTASSIUM 5.63 mmol/L (3.50-5.30); BG SODIUM 135.5 mmol/L (135.0-148.0)
[2021-02-10] MEDS: FAMOTIDINE 20MG/2ML VIAL IV SCH (09:17)
[2021-02-10] MEDS: NOREPINEPHRINE 32 MG in DEXT 5% WATER 218 ML IV PRN (09:25)
[2021-02-10 09:51] LABS: NUCLEATED RED BLOOD CELLS 3 /100 WBC; PLATELET ESTIMATE NORMAL
[2021-02-10] MEDS ORDERED: SODIUM BICARBONATE 50 MEQ in SODIUM CHLORIDE 0.45% 1,000 ML IV SCH (11:00)
[2021-02-10] MEDS ORDERED: SODIUM BICARBONATE 8.4% 1 MEQ/ML 50ML SYR IV SCH (11:00)
[2021-02-10] MEDS ORDERED: CALCIUM CHLORIDE 1GM/10ML SYR IV ONE (11:00)
[2021-02-10] MEDS ORDERED: IPRATROPIUM BROMIDE (0.02%) 0.5MG/2.5ML NEB HHN PRN (12:00)
[2021-02-10] MEDS ORDERED: INSULIN REGULAR (HUMULIN R) 300UNITS/3ML VIAL IV SCH (12:00)
[2021-02-10] MEDS: IPRATROPIUM BROMIDE (0.02%) 0.5MG/2.5ML NEB HHN SCH ×2 (12:10→20:53)
[2021-02-10] MEDS: VASOPRESSIN 20 UNIT in SODIUM CHLORIDE 0.9% 99 ML IV PRN ×2 (12:26→20:10)
[2021-02-10] MEDS ORDERED: CALCIUM CHLORIDE 1000 MG in DEXTROSE 5% WATER 100 ML IV SCH (13:00)
[2021-02-11] VITALS (58 sets, daily range): BP systolic 61–145; BP diastolic 17–89
[2021-02-11] MEDS: IPRATROPIUM BROMIDE (0.02%) 0.5MG/2.5ML NEB HHN SCH ×3 (00:29→14:09)
[2021-02-11] MEDS: FENTANYL CITRATE/PF 2,500 MCG in SODIUM CHLORIDE 0.9% 200 ML IV PRN ×2 (03:40→12:59)
[2021-02-11] MEDS: VASOPRESSIN 20 UNIT in SODIUM CHLORIDE 0.9% 99 ML IV PRN ×2 (03:40→15:04)
[2021-02-11] MEDS: PHENYLEPHRINE 100 MG in DEXT 5% WATER 240 ML IV PRN ×2 (03:44→13:00)
[2021-02-11] MEDS: INSULIN LISPRO 100 UNITS/ML SUBCUT SCH ×2 (05:04→13:05)
[2021-02-11] MEDS: SODIUM CHLORIDE 0.9% 1,000 ML IV SCH (05:04)
[2021-02-11] MEDS: BLOOD SUGAR DIAGNOSTIC STRIP TEST SCH ×2 (05:04→12:10)
[2021-02-11] MEDS: METOCLOPRAMIDE HCL 10MG/2ML VIAL IV SCH ×2 (05:04→13:02)
[2021-02-11 05:06] LABS: CHLORIDE 105 mEq/L (98-107)
[2021-02-11 08:45] LABS: BG BASE EXCESS -2.8 mmol/L (-2.0-2.0); BG CARBOXYHEMOGLOBIN 0.3 % (0.5-1.5); BG DEOXYHEMOGLOBIN 1.7 % (0.0-5.0); BG FRACTION INSPIRED OXYGEN 90; BG HCO3 ACT 25.1 mmol/L (22.0-26.0); BG METHEMOGLOBIN 0.2 % (0.0-1.5); BG OXYGEN SATURATION 98.3 % (92.0-98.5); BG OXYHEMOGLOBIN 97.8 % (94.0-97.0); BG PH 7.226 (7.350-7.450); BG PO2 139.9 mmHg (75.0-100.0); BG SAMPLE SITE RIGHT RADIAL; BG VENT MODE VENT - P/C
[2021-02-11] MEDS: FAMOTIDINE 20MG/2ML VIAL IV SCH (09:17)
[2021-02-11 09:21] LABS: HEMATOCRIT. 26.6 % (36.0-48.0); HEMOGLOBIN. 8.1 g/dL (12.0-16.0); MEAN CORPUSCULAR HEMOGLOBIN 30.4 pg (28.0-32.0); MEAN CORPUSCULAR VOLUME 99.3 fL (81.0-99.0); MEAN PLATELET VOLUME 10.1 fl (7.4-10.4); PLATELET 57 x1000/uL (130-400); RED BLOOD CELL COUNT 2.68 mill/uL (4.2-5.4); RED CELL DISTRIBUTION WIDTH 18.8 % (11.6-14.6)
[2021-02-11] MEDS: MIDAZOLAM HCL 100 MG in SODIUM CHLORIDE 0.9% 100 ML IV PRN (10:10)
[2021-02-11] MEDS: SODIUM CHLORIDE 0.9% 500 ML IV NR ×3 (10:22→12:11)
[2021-02-11] MEDS ORDERED: CALCIUM CHLORIDE 1GM/10ML SYR IV ONE (11:00)
[2021-02-11] MEDS ORDERED: SODIUM POLYSTYRENE SULFONATE 15 G/60 ML BOT PO SCH (11:00)
[2021-02-11] MEDS ORDERED: SODIUM BICARBONATE 8.4% 1 MEQ/ML 50ML SYR IV NR (11:30)
[2021-02-11 11:58] LABS: NUCLEATED RED BLOOD CELLS 23 /100 WBC; PLATELET ESTIMATE DECREASED
[2021-02-11] MEDS ORDERED: CALCIUM CHLORIDE 1000 MG in DEXTROSE 5% WATER 100 ML IV NR (12:30)
[2021-02-11] MEDS: NOREPINEPHRINE 32 MG in DEXT 5% WATER 218 ML IV PRN (16:28)
[2021-02-11] MEDS ORDERED: SODIUM POLYSTYRENE SULFONATE 15 G/60 ML BOT PO ONE (17:00)
== END 2021-02-11 17:43 | disposition expired | DRG 720 ==
LOC: ER 04:16 → 7WST 06:11 → ENRESERV 09:11 → MICUNO 01-17 02:43 → MICUSO 01-17 05:15 → UNDODISIN 01-17 15:34 → MICUSO 01-25 22:10
PROVIDERS: ADMIT Internal Medicine; ATTEND Internal Medicine
PROC: 5A09557 Assistance with Respiratory Ventilation, Greater than 96 Consecutive Hours, Continuous Positive Airway Pressure (ICD-10-PCS; 2021-01-08)
PROC: 5A1955Z Respiratory Ventilation, Greater than 96 Consecutive Hours (ICD-10-PCS; principal; 2021-01-17)
PROC: 02HV33Z Insertion of Infusion Device into Superior Vena Cava, Percutaneous Approach (ICD-10-PCS; 2021-01-17)
PROC: B548ZZA Ultrasonography of Superior Vena Cava, Guidance (ICD-10-PCS; 2021-01-17)
PROC: 0BH17EZ Insertion of Endotracheal Airway into Trachea, Via Natural or Artificial Opening (ICD-10-PCS; 2021-01-17)
PROC: 5A12012 Performance of Cardiac Output, Single, Manual (ICD-10-PCS; 2021-02-11)
DX: A41.89 Other specified sepsis (principal); U07.1 COVID-19; J96.01 Acute respiratory failure with hypoxia; J12.82 Pneumonia due to coronavirus disease 2019; E87.6 Hypokalemia; E87.2 Acidosis; E87.1 Hypo-osmolality and hyponatremia; E78.5 Hyperlipidemia, unspecified; E11.65 Type 2 diabetes mellitus with hyperglycemia; I10 Essential (primary) hypertension; F41.9 Anxiety disorder, unspecified; R65.21 Severe sepsis with septic shock; E87.4 Mixed disorder of acid-base balance; D62 Acute posthemorrhagic anemia; D63.8 Anemia in other chronic diseases classified elsewhere; E11.43 Type 2 diabetes mellitus with diabetic autonomic (poly)neuropathy; E78.1 Pure hyperglyceridemia; E87.5 Hyperkalemia; G93.41 Metabolic encephalopathy; I46.9 Cardiac arrest, cause unspecified; I49.5 Sick sinus syndrome; I24.8 Other forms of acute ischemic heart disease; J96.02 Acute respiratory failure with hypercapnia; K31.84 Gastroparesis; K56.7 Ileus, unspecified; J98.2 Interstitial emphysema; Z51.5 Encounter for palliative care; Z66 Do not resuscitate; Z79.4 Long term (current) use of insulin; Z82.41 Family history of sudden cardiac death
CPT/HCPCS: 31500; 36415; 36600; 71045; 71275; 74018; 76937; 80048; 80051; 80053; 80061; 81003; 82375; 82550; 82607; 82728; 82746; 82805; 82962; 83036; 83540; 83550; 83605; 83615; 83735; 83880; 84145; 84478; 84484; 85025; 85044; 85379; 85384; 86140; 86850; 86900; 86920; 87070; 87426; 92950; 93005; 93306; 93970; 94002; 94003; 94640; 94660; 99291; A6261; C1725; C1893; J0456; J0692; J0696; J1100; J1265; J1650; J1815; J1940; J2060; J2250; J2270; J2370; J2704; J2765; J2920; J3010; J3490; J7030; J7040; J7042; J7050; J7060; J7608; P9016; P9041; Q9967; U0003; A4315